=== PATIENT | male | born 1960 | race Caucasian/White ===

== ENCOUNTER 2020-07-29 22:45 | Inpatient (IN) | payer OTHER, SELFPAY ==
[2020-07-29] VITALS (10 sets, daily range): BP systolic 205–252; BP diastolic 115–137; PULSE 78–96; RESP 13–26; TEMP 36.7; O2SAT 94–98
--- NOTE | 2020-07-29 22:45 | RT.EKG_ITS ---
APPROVED REPORT Exam: Resting ECG Patient Location: E HR:88 bpm ECG Measurements Heart Rate 88 AXIS MN 176 P 47 QRSd 112 QRS 23 QT 408 T 28 QTc 493 Conclusion Sinus rhythm...normal P axis, V-rate 60- 99 Probable left atrial enlargement...P >50mS, <-0.10mV V1 Left ventricular hypertrophy...multiple LVH criteria Nonspecific T abnrm, anterolateral leads...T <-0.10mV, I aVL V2-V6 ST elevation, consider anterior injury...ST >0.15mV, V1-V5 Normal [place] ST elevation related to repolarization/LVH not STEMI.
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
[2020-07-29 23:14] LABS: Abs Immature Grans 0.04 10^3/uL (0.0-0.06); Absolute Basophil Count 0.07 10^3/uL (0.0-0.2); Absolute Eosinophil Count 0.29 10^3/uL (0.0-0.7); Absolute Lymphocyte Count 2.83 10^3/uL (1.2-3.4); Absolute Monocyte Count 0.99 10^3/uL (0.1-0.8); Absolute Neutrophil Count 4.54 10^3/uL (1.2-6.7); Basophils % 0.8; Eosinophils % 3.3; HCT 45.3 % (40.0-50.0); HGB 15.3 g/dL (13.5-17.5); Immature Grans % 0.5; Lymphocytes % 32.3; MCH 31.1 pg (27.0-33.0); MCHC 33.8 % (32.0-36.0); MCV 92.1 fL (80-95); MPV 10.1 fL (8.0-11.0); Monocytes % 11.3; Neutrophils % 51.8; Nucleated RBC 0 %; Platelet Count 173 10^3/uL (130-400); RBC 4.92 10^6/uL (4.36-5.78); RDW 12.7 % (11.8-14.1); RDW-SD 42.8 fL; WBC 8.76 10^3/uL (4.4-10.8)
[2020-07-29 23:30] LABS: ALT 24 U/L (16-63); AST 30 U/L (15-37); Albumin 4.4 g/dL (3.4-5.0); Alkaline Phosphatase 74 U/L (46-116); Anion Gap 11.1 mmol/L (3-11); BUN 15 mg/dL (7-18); Bilirubin, Total 0.4 mg/dL (0.2-1.0); CO2 25.9 mmol/L (21.0-32.0); CREATININE 1.27 mg/dL (0.70-1.30); Calcium 9.7 mg/dL (8.5-10.1); Chloride 101 mmol/L (98-107); Estimated GFR 58.45 (mL/min/1.73m2); Glucose 89 mg/dL (74-106); Magnesium 2.2 mg/dL (1.8-2.4); Potassium 3.5 mmol/L (3.5-5.1); Sodium 138 mmol/L (136-145); Total Protein 8.1 g/dL (6.4-8.2)
--- NOTE | 2020-07-29 23:34 | DI.CT_ITS ---
EXAM: CT BRAIN NECK CTA CLINICAL HISTORY: left side weakness since waking up at 7am. TECHNIQUE: Imaging Protocol: Axial CT angiography was performed with multi-slice acquisition and mu lti-planar and/or 3D reconstructions. CONTRAST MATERIAL: Intravenous: Omnipaque 350 Contrast volume:structured data in ml COMPARISON: No exams were available for comparison FINDINGS: CT Head W/O: Ventricles and Extra axial spaces: Normal in size and morphology for the patient's age. Hemorrhage: None. Cerebral parenchyma: 3 small focal hypodensities in the right basal ganglia region consistent with ol d lacunar infarcts. No definite acute infarct is seen. There are basal ganglia calcifications. Midline shift: None. Brainstem/Cerebellum: Normal. Calvarium: Normal. Visualized Paranasal sinuses/Mastoids: Mucosal thickening of the right maxillary sinus. Partial opac ification of right mastoid air cells. Soft Tissues: Unremarkable. CTA Brain W: Internal Carotid Arteries: Petrous: Normal. Cavernous: Normal. Cerebral: Normal. Middle Cerebral Arteries: Right: No aneurysm, occlusion or significant stenosis. Left: No aneurysm, occlusion or significant stenosis. Anterior Cerebral Arteries: Right: No aneurysm, occlusion or significant stenosis. Left: No aneurysm, occlusion or significant stenosis. Posterior cerebral Arteries: Right: No aneurysm, occlusion or significant stenosis. Left: No aneurysm, occlusion or significant stenosis. Vertebral Arteries: Right: No aneurysm, occlusion or significant stenosis. Left: No aneurysm, occlusion or significant stenosis. Basilar Artery: No aneurysm, occlusion or significant stenosis. CTA Neck W: Common Carotid: Right: No aneurysm, occlusion or significant stenosis. Mild calcific plaque at the bulb Left: No aneurysm, occlusion or significant stenosis. Mild calcific plaque at the bulb. External Carotid: Right: No aneurysm, occlusion or significant stenosis. Left: No aneurysm, occlusion or significant stenosis. Internal Carotid: Right: No aneurysm, occlusion or significant stenosis. Left: No aneurysm, occlusion or significant stenosis. Vertebral Artery: Right: No aneurysm, occlusion or significant stenosis. Left: No aneurysm, occlusion or significant stenosis. Lung Apices: Normal. Bones: Normal. Soft Tissues: Smoothly marginated low-density nodules in the but in both lobes of the thyroid. The l argest is at the lower pole of the right lobe which measures 2.2 cm in greatest dimension. IMPRESSION: 1. Normal CTA examination of the [place] of [place]. 2. Small focal low-density lesions in the right basal ganglia, consistent with older subacute lacunar infarcts. 3. Mild calcific plaque at the common carotid bulbs. No significant stenosis. RADIATION DOSE DELIVERED: Total DLP DATA REPOSITORY: All CT scans at this facility are submitted to the National Radiology Data Registry (NRDR) Dose Index Registry (DIR) with the [employer] (ACR). RADIATION OPTIMIZATION: All CT scans at this facility use at least one of these dose optimization te chniques: automated exposure control; mA and/or kV adjustment per patient size (includes targeted exa ms where dose is matched to clinical indication); or iterative reconstruction.
[2020-07-29] MEDS: Normal Saline Flush 10 ML SYR IVP (23:35)
[2020-07-29] MEDS: Omnipaque 350 MG/ML 100 ML BTL IJ (23:36)
[2020-07-29] MEDS: Normal Saline - Diluent 50 ML VIAL IV (23:36)
--- NOTE | 2020-07-29 23:44 | DI.VRAD_ITS ---
PROCEDURE INFORMATION: Exam: CT Angiography Head Without And With Contrast Exam date and time: 07/29/2020 11:00 PM Age: 59 years old Clinical indication: Weakness TECHNIQUE: Imaging protocol: Computed tomographic angiography of the head without and with intravenous contrast. 3D rendering (Not supervised by radiologist): MIP and/or 3D reconstructed images were created by the technologist. Radiation optimization: All CT scans at this facility use at least one of these dose optimization techniques: automated exposure control; mA and/or kV adjustment per patient size (includes targeted exams where dose is matched to clinical indication); or iterative reconstruction. Contrast material: [id number]; Contrast volume: 85 ml; Contrast route: INTRAVENOUS (IV); Other technique: STROKE PROTOCOL was implemented. COMPARISON: No relevant prior studies available. FINDINGS: ANTERIOR CIRCULATION: Right internal carotid artery: Intracranial segment is patent with no significant stenosis or occlusion. No aneurysm. Right middle cerebral artery: No occlusion or significant stenosis. No aneurysm. Right anterior cerebral artery: No occlusion or significant stenosis. No aneurysm. Left internal carotid artery: Intracranial segment is patent with no significant stenosis. No aneurysm. Left middle cerebral artery: No occlusion or significant stenosis. No aneurysm. Left anterior cerebral artery: No occlusion or significant stenosis. No aneurysm. POSTERIOR CIRCULATION: Right vertebral artery: No occlusion or significant stenosis. No aneurysm. Left vertebral artery: No occlusion or significant stenosis. No aneurysm. Basilar artery: No occlusion or significant stenosis. No aneurysm. Right posterior cerebral artery: No occlusion or significant stenosis. No aneurysm. Left posterior cerebral artery: No occlusion or significant stenosis. No aneurysm. HEAD: Brain: Age-indeterminate lacunar infarcts are seen within the right basal ganglia and right thalamus, adjacent to the posterior limb of the right internal capsule. Senescent calcifications are seen within the globus pallidus bilaterally. The brain parenchyma is otherwise normal appearance. No intracranial hemorrhage. No midline shift. No evidence for acute cortical infarct. Cerebral ventricles: Normal. No ventriculomegaly. Bones/joints: Unremarkable. No acute fracture. Paranasal sinuses: Moderate mucosal thickening within the left maxillary sinus. The remaining paranasal sinuses are well aerated. Mastoid air cells: Mild mucosal thickening and fluid within the right mastoid air cells. The left mastoid air cells are well aerated. Soft tissues: Unremarkable. IMPRESSION: 1. No large vessel occlusion. Unremarkable CT head. 2. Age-indeterminate lacunar infarcts within the right basal ganglia and right thalamus adjacent to the posterior limb of the right internal capsule. No evidence for acute cortical infarct. No intracranial hemorrhage. 3. Mild left maxillary sinusitis. Mild fluid within the right mastoid air cells. ASSESSMENT: ASPECTS (She Stroke Program Early CT Score) is 10. PROCEDURE INFORMATION: Exam: CT Angiography Neck Without And With Contrast Exam date and time: 07/29/2020 11:00 PM Age: 59 years old Clinical indication: Weakness TECHNIQUE: Imaging protocol: Computed tomographic angiography of the neck without and with intravenous contrast. 3D rendering (Not supervised by radiologist): MIP and/or 3D reconstructed images were created by the technologist. Radiation optimization: All CT scans at this facility use at least one of these dose optimization techniques: automated exposure control; mA and/or kV adjustment per patient size (includes targeted exams where dose is matched to clinical indication); or iterative reconstruction. Contrast material: [id number]; Contrast volume: 85 ml; Contrast route: INTRAVENOUS (IV); COMPARISON: No relevant prior studies available. FINDINGS: Right common carotid artery: No stenosis. No dissection or occlusion. Right internal carotid artery: Mild atherosclerotic plaque is seen within the right carotid bulb and right internal carotid artery without stenosis. Right external carotid artery: No occlusion or stenosis of the origin. Right vertebral artery: No stenosis. No dissection or occlusion. Left common carotid artery: No stenosis. No dissection or occlusion. Left internal carotid artery: No stenosis of the extracranial segment. No dissection or occlusion. Left external carotid artery: No occlusion or stenosis of the origin. Left vertebral artery: No stenosis. No dissection or occlusion. Thyroid: A 1.9 cm cystic nodule is seen within the left lobe of the thyroid gland. Several smaller, 2-3 mm, cysts are seen within the thyroid gland bilaterally. Bones/joints: No acute fracture. Soft tissues: Normal. No significant soft tissue swelling. Lungs: Mild pulmonary fibrosis within the lung apices. IMPRESSION: 1. No stenosis or occlusion within the extracranial vessels. 2. 1.9 cm cystic nodule within the left lobe of the thyroid gland. This warrants further evaluation with an outpatient, nonemergent thyroid ultrasound. REFERENCES: NASCET CRITERIA. The degree of internal carotid artery stenosis is based on NASCET criteria. Normal is no stenosis. Mild is less than 50% stenosis. Moderate is 50-69% stenosis. Severe is 70% to 99% stenosis. Total occlusion is no detectable patent lumen. Dictated and Authenticated by: Marie Geiger MD. Ordering:BRIEN Bryson MD
[2020-07-29] MEDS: Labetalol 100 MG/20 ML VIAL 10 MG IVP (23:50)
[2020-07-30] VITALS (103 sets, daily range): BP systolic 149–233; BP diastolic 80–162; PULSE 63–97; RESP 10–26; TEMP 36.2–36.8; O2SAT 84–98
[2020-07-30] MEDS: Aspirin 81 MG CHEW 324 MG CH (00:08)
[2020-07-30 00:39] LABS: *AMPHETAMINES SCREEN URINE Negative (Negative); *BARBITURATES SCREEN URINE Negative (Negative); *BENZODIAZEPINES SCREEN URINE Negative (Negative); Cannabinoids THC POSITIVE (Negative); Cocaine Screen,Urine Negative (Negative); METHADONE URINE SCREEN Negative (Negative); OPIATES URINE SCREEN Negative (Negative)
[2020-07-30 01:29] LABS: Tricyclic Antidepressants Negative (Negative)
[2020-07-30 01:33] LABS: Bilirubin Negative (Negative); Blood Trace-intact (Negative); Clarity Clear (Clear); Glucose Negative (Negative); Ketones Negative (Negative); Leukocyte Esterase Negative (Negative); Nitrite Negative (Negative); Specific Gravity 1.015 (1.005-1.025); Urobilinogen 0.2 EU/dL (Up TO 0.2)
[2020-07-30 01:34] LABS: Bacteria Negative HPF (Negative); C & S Indicated? No; Casts Negative LPF (Negative); Crystals Negative HPF (Negative); Epithelial Cells Rare HPF (Negative); Mucus Negative (Negative); RBC 0-2 HPF (0-2); WBC 0-2 HPF (0-5)
[2020-07-30] MEDS: Normal Saline 1,000 ML 75 ML IV (02:00)
[2020-07-30] MEDS: Atorvastatin 40 MG TAB PO ×2 (02:22→19:45)
[2020-07-30 02:32] LABS: Troponin I 0.22 ng/mL (<0.06)
--- NOTE | 2020-07-30 05:30 | RT.EKG_ITS ---
APPROVED REPORT Exam: Resting ECG Patient Location: I HR:72 bpm ECG Measurements Heart Rate 72 AXIS AL 188 P 67 QRSd 102 QRS 45 QT 465 T -9 QTc 510 Conclusion Sinus rhythm...normal P axis, V-rate 60- 99 Probable left atrial enlargement...P >50mS, <-0.10mV V1 LVH with secondary repolarization abnormality...multi-LVH criteria, abnrm ST-T Prolonged QT interval...QTc >500mS
[2020-07-30] MEDS: Heparin 5,000 UNITS/ML VIAL 5000 UNITS SC ×3 (05:44→22:21)
[2020-07-30 06:31] LABS: Abs Immature Grans 0.06 10^3/uL (0.0-0.06); Absolute Basophil Count 0.05 10^3/uL (0.0-0.2); Absolute Eosinophil Count 0.13 10^3/uL (0.0-0.7); Absolute Monocyte Count 0.73 10^3/uL (0.1-0.8); Absolute Neutrophil Count 4.34 10^3/uL (1.2-6.7); Basophils % 0.7; Eosinophils % 1.9; HGB 13.9 g/dL (13.5-17.5); Immature Grans % 0.9; MCH 31.3 pg (27.0-33.0); MCHC 33.9 % (32.0-36.0); MCV 92.3 fL (80-95); MPV 10.2 fL (8.0-11.0); Monocytes % 10.7; Neutrophils % 63.8; Nucleated RBC 0 %; Platelet Count 158 10^3/uL (130-400); RBC 4.44 10^6/uL (4.36-5.78); RDW 12.6 % (11.8-14.1); RDW-SD 43.1 fL; WBC 6.81 10^3/uL (4.4-10.8)
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
[2020-07-30 06:58] LABS: Hemoglobin A1C 5.1 % (<5.7)
[2020-07-30 07:02] LABS: Anion Gap 8.1 mmol/L (3-11); BUN 14 mg/dL (7-18); CO2 24.9 mmol/L (21.0-32.0); CREATININE 1.15 mg/dL (0.70-1.30); Calcium 8.4 mg/dL (8.5-10.1); Calculated LDL 132 mg/dL (<100); Chloride 103 mmol/L (98-107); Cholesterol 194 mg/dL (<200); Glucose 99 mg/dL (74-106); HDL Cholesterol 46 mg/dL (40-60); Magnesium 1.9 mg/dL (1.8-2.4); Potassium 3.4 mmol/L (3.5-5.1); Sodium 136 mmol/L (136-145); Triglyceride 83 mg/dL (<150); Vitamin B12 1239 pg/mL (193-986)
[2020-07-30 07:05] LABS: Troponin I 0.22 ng/mL (<0.06)
[2020-07-30] MEDS: Mylanta Suspension 30 ML CUP PO (07:53)
[2020-07-30] MEDS: Aspirin E.C. 81 MG TABEC PO (07:53)
[2020-07-30] MEDS: Metoprolol 5 MG/5 ML VIAL IVP ×2 (07:54→09:15)
[2020-07-30] MEDS: Potassium Chloride 20 MEQ TABCR 40 MEQ PO (07:54)
[2020-07-30] MEDS: Normal Saline Flush 10 ML SYR IVP ×3 (07:55→23:09)
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
--- NOTE | 2020-07-30 10:33 | PHA.REVIEW ---
Pharmacy Admission Review - Admission Clinical Review (Last Reviewed 07/30/20 @ 07:12 by Sandra Lyn MD) Discharge planning issues (Acute) DVT prophylaxis (Acute) Hypertensive emergency (Acute) CVA (cerebral vascular accident) (Acute) Elevated troponin I level (Acute) No Known Allergies Allergy (Unverified 07/29/20 23:28) Height 5 ft 9 in Weight 77.3 kg ACUTE CVA HYPERTENSIVE EMERGENCY - Comments Comments/Follow Ups: Will need BP meds added to home regimen when appropriate. MD did mention weakness had improved, speech at baseline. Neurology consult, will need Echo, stress test, and MRI - Renal Dosing Renal Dosing: BUN 14 mg/dL (7-18) 07/30/20 06:08 Creatinine 1.15 mg/dL (0.70-1.30) 07/30/20 06:08 Medications needing adjustments: Reviewed (CrCl~70ml/min-meds ok) - Anticoagulation Anticoagulation: Hgb 13.9 g/dL (13.5-17.5) 07/30/20 06:08 Hct 41.0 % (40.0-50.0) 07/30/20 06:08 Plt Count 158 10^3/uL (130-400) 07/30/20 06:08 Creatinine 1.15 mg/dL (0.70-1.30) 07/30/20 06:08 DVT Prohphylaxis: Reviewed Medications: Heparin - Opiate Usage Evaluate Pain Scale/Pains Meds: N/A - Relevant Labs Sodium 136 mmol/L (136-145) 07/30/20 06:08 Potassium 3.4 mmol/L (3.5-5.1) L 07/30/20 06:08 Chloride 103 mmol/L (98-107) 07/30/20 06:08 Magnesium 1.9 mg/dL (1.8-2.4) 07/30/20 06:08 Electrolytes, C-Reactive P, ESR: Reviewed (K+ 40meq po x1,) - DM Control DM Control: Glucose 99 mg/dL (74-106) 07/30/20 06:08 Hemoglobin A1c 5.1 % (<5.7) 07/30/20 06:08 Insulin Dosing: N/A - Heart Failure/NH Heart Failure/NH: Troponin I 0.22 ng/mL (<0.06) H* 09/11/20 06:08 EF%, PRABHAKAR's, B-Blockers, Diuretics: Reviewed (Metoprolol 10mg IVP q6h prn with hold parameters, Troponin levels 0.2,0.22,0.22) - BP Control BP Control: Blood Pressure 197/132 Blood Pressure 210/124 Blood Pressure 200/126 Blood Pressure 201/135 Blood Pressure 203/137 Blood Pressure 215/133 Blood Pressure 215/125 Blood Pressure 209/138 Blood Pressure 215/138 Blood Pressure 178/106 Blood Pressure 201/118 Blood Pressure 214/112 Blood Pressure 195/104 Blood Pressure 197/107 Blood Pressure 197/102 Blood Pressure 201/106 Blood Pressure 233/117 Blood Pressure 196/125 Blood Pressure 184/108 Blood Pressure 220/126 Blood Pressure 220/126 Blood Pressure 205/115 Blood Pressure 212/119 Blood Pressure 243/119 Blood Pressure 252/137 Blood Pressure 250/130 If elevated: Reviewed (Will need to add oral meds to regimen prior to discharge) - Qtc Review If Elevated: Reviewed (QTC 493-no prolonging meds) - IV to PO Switch IV Medications: N/A - Home Meds Home Med List reviewed: Reviewed Relevent Home Meds Not ordered & why?: Xyzal non-formulary, metioned formulary options to MD, Patient doesn't need at this time. Ibuprofen and Calcium also not needed at this time. - Current meds Current Medication Order Review: Reviewed (Added Statin and ASA as new meds, Patient is a smoker and has Nicotine ordered)
--- NOTE | 2020-07-30 11:00 | NUR.NOTE ---
Nursing Note: Addressed continuing concerns over patient continued hypertension to Dr. Collins. He listens to my concerns, and will look into the problem. awaiting new orders.
--- NOTE | 2020-07-30 11:15 | DI.MRI_ITS ---
EXAM: MR BRAIN WO CLINICAL HISTORY: Acute CVA TECHNIQUE: Multiplanar multisequence MRI of the brain was performed. COMPARISON: CT CT BRAIN NECK CTA from 07/29/2020 FINDINGS: The exam is mildly limited by patient motion. Accelerated protocol was performed. There are 2 small areas of old lacunar infarct in the right basal ganglia. Are a few small areas of h igh signal with restricted diffusion in the right basal ganglia consistent with acute lacunar infarct s. An additional tiny focus of restricted diffusion is seen in the posterior left parietal white mat ter. Basal ganglia calcifications are seen. The vascular flow voids appear intact. There is mild unde rlying atrophy. The ventricles are normal in size. There is mucosal thickening of the right maxillary sinus as well as some some fluid in right mastoid air cells. IMPRESSION: Tiny foci of restricted diffusion in the right basal ganglia and left posterior parietal lobes consis tent with acute lacunar infarct. Old right basal ganglia lacunar infarcts are also seen. DATA REPOSITORY:
--- NOTE | 2020-07-30 11:30 | RT.EKG_ITS ---
APPROVED REPORT Exam: Resting ECG Patient Location: I HR:65 bpm ECG Measurements Heart Rate 65 AXIS PA 174 P 59 QRSd 101 QRS 25 QT 495 T -20 QTc 514 Conclusion Sinus rhythm...normal P axis, V-rate 60- 99 Probable left atrial enlargement...P >50mS, <-0.10mV V1 LVH with secondary repolarization abnormality...multi-LVH criteria, abnrm ST-T Prolonged QT interval...QTc >500mS
--- NOTE | 2020-07-30 11:31 | CHAPLAIN ---
Ahmet was in bed when I visited. He seemed hesitant to have a conversation at first, but began responding to questions. He told me he is scheduled for an MRI later today. He has had one before and we talked about what that experience is like for him. Ahmet commented that he is fairly certain his MRI results will be normal. He said he is in touch with family by phone.
--- NOTE | 2020-07-30 11:36 | NUR.NOTE ---
Nursing Note: Patient returns from MRI, c/o of some chest pain. Hr 66 BP 212/123, Advise charge Nurse Brandie. EKG to be ordered
[2020-07-30] MEDS: Pantoprazole 40 MG TABCR PO (11:42)
--- NOTE | 2020-07-30 11:55 | PT.INNT ---
Date of service: 07/30/20 Time of Service: 11:55 PT Notes Visit Reasons: ACUTE CVA, HYPERTENSIVE EMERGENCY Patient was initially at MRI testing then will have ECG done and therefore is not available for PT evaluation. Update from nursing indicates that patient will need to be transferred stat to the ICU for close medical monitoring/urgent intervention. Will plan to evaluate patient as soon as another referral under ICU level of care is received. Thank you for the opportunity to participate in the care of this patient. Jossie Winslow PT, DPT, CLT [facility] [place], [place]
[2020-07-30 12:21] LABS: Troponin I 0.22 ng/mL (<0.06)
[2020-07-30] MEDS: hydrALAZINE 20 MG/ML VIAL 10 MG IVP ×3 (12:32→23:09)
--- NOTE | 2020-07-30 12:35 | NUR.NOTE ---
Nursing Note: [id number] is being transferred to the ICU , report was given to Elaina Rowland RN, all questions were answered
[2020-07-30 14:51] LABS: COVID-19 RT-PCR UVMMC Result Negative (Negative)
[2020-07-30] MEDS: Nicotine 14 MG/24 HR PATCH TD (19:44)
[2020-07-30] MEDS: amLODIPine 5 MG TAB PO (22:21)
[2020-07-31] VITALS (95 sets, daily range): BP systolic 139–202; BP diastolic 86–108; PULSE 69–105; RESP 10–32; TEMP 36.3–36.8; O2SAT 93–100
[2020-07-31] MEDS: Acetaminophen 325 MG TAB 650 MG PO ×2 (03:05→08:34)
[2020-07-31] MEDS: Heparin 5,000 UNITS/ML VIAL 5000 UNITS SC ×3 (05:43→22:34)
[2020-07-31 06:11] LABS: Abs Immature Grans 0.04 10^3/uL (0.0-0.06); Absolute Basophil Count 0.04 10^3/uL (0.0-0.2); Absolute Eosinophil Count 0.07 10^3/uL (0.0-0.7); Absolute Lymphocyte Count 1.34 10^3/uL (1.2-3.4); Absolute Monocyte Count 0.67 10^3/uL (0.1-0.8); Absolute Neutrophil Count 5.47 10^3/uL (1.2-6.7); Basophils % 0.5; Eosinophils % 0.9; HGB 15.4 g/dL (13.5-17.5); Immature Grans % 0.5; Lymphocytes % 17.6; MCH 31.1 pg (27.0-33.0); MCHC 34.2 % (32.0-36.0); MCV 90.9 fL (80-95); MPV 10.1 fL (8.0-11.0); Monocytes % 8.8; Neutrophils % 71.7; Nucleated RBC 0 %; Platelet Count 158 10^3/uL (130-400); RBC 4.95 10^6/uL (4.36-5.78); RDW 13.1 % (11.8-14.1); RDW-SD 43.4 fL; WBC 7.63 10^3/uL (4.4-10.8)
[2020-07-31] MEDS: Pantoprazole 40 MG TABCR PO (08:33)
[2020-07-31] MEDS: Aspirin E.C. 81 MG TABEC PO (08:34)
[2020-07-31] MEDS: Nicotine 14 MG/24 HR PATCH TD (08:35)
[2020-07-31] MEDS: Normal Saline Flush 10 ML SYR IVP ×3 (08:35→22:35)
--- NOTE | 2020-07-31 10:30 | RT.EKG_ITS ---
APPROVED REPORT Exam: Resting ECG Patient Location: I HR:77 bpm ECG Measurements Heart Rate 77 AXIS MA 160 P 71 QRSd 99 QRS 48 QT 439 T -58 QTc 497 Conclusion Sinus rhythm...normal P axis, V-rate 60- 99 Ventricular premature complex...V complex w/ short R-R interval Probable left atrial enlargement...P >50mS, <-0.10mV V1 Probable LVH with secondary repol abnrm...multiple LVH criteria
[2020-07-31 10:32] LABS: Troponin I 0.46 ng/mL (<0.06)
[2020-07-31 11:11] LABS: NT-proBNP 2033 pg/mL (<300)
--- NOTE | 2020-07-31 11:14 | W.PM.PROGNOT ---
Date of Service Date of service: 07/31/20 Time of Service: 11:14 Assessment and Plan Assessment and plan (1) CVA (cerebral vascular accident): Status: Acute Assessment and plan: Unclear as the etiology of his CVA but his symptoms seem to be resolving. Most likely this is small vessel disease with a precipitated because of his CVA due to his hypertensive crisis. Continue gradual blood pressure management. Goal is to reduce his systolic blood pressure by 10% over the next couple days and then work towards normal blood pressures over the next few weeks. We will try not to drop his systolic pressure below 150 during the acute phase of his CVA. He is now 3 days into his onset of his symptoms think we can safely bring down his blood pressure gradually. Qualifiers: CVA mechanism: unspecified Qualified Code(s): I63.9 - Cerebral infarction, unspecified (2) Hypertensive emergency: Status: Acute Assessment and plan: As above. I begin the patient on scheduled doses of metoprolol in addition to the amlodipine that Dr. Collins started him on yesterday. Continue risk factor reduction including treatment of his lipids. Will check a glycohemoglobin A1c to rule out underlying diabetes mellitus. Patient needs to refrain from smoking upon discharge. He needs close outpatient follow-up with a PCP. We will keep him hospitalized while we are adjusting his blood pressure medications and while we complete his stroke work-up including MRI/MRA of the brain along with carotid ultrasound and echocardiogram. (3) Elevated troponin I level: Status: Acute Assessment and plan: I agree with Dr. Collins's assessment that his troponin level is most likely due to hypertensive emergency rather than an acute SC from plaque rupture. In light of his recent CVA and extreme hypertension I would not heparinize him because I think he is at higher risk of having small vessel cerebral bleed. I would continue with statins and aspirin and add low-dose beta-blockers to his regimen. Currently he is asymptomatic of any ischemic pain. I will proceed with an echocardiogram on Sunday morning however his [id number] ultrasound shows well-preserved LV function. This is particularly demonstrated in the parasternal short axis view where he had concentric constriction of his LV at the papillary muscle level. He has significant LVH on his [id number] ultrasound. We will get a better quantification with a formal echocardiogram on Sunday. I will continue to cycle his troponin levels until they decline. (4) Aortic valve regurgitation: Status: Chronic Assessment and plan: As above - repeat echo ordered, but may not be able to be obtained until next week. Qualifiers: Cardiac valve disease etiology: etiology unspecified Qualified Code(s): I35.1 - Nonrheumatic aortic (valve) insufficiency (5) GERD (gastroesophageal reflux disease): Status: Chronic Assessment and plan: Start PPI Qualifiers: Esophagitis presence: without esophagitis Qualified Code(s): K21.9 - Gastro-esophageal reflux disease without esophagitis (6) DVT prophylaxis: Status: Acute Assessment and plan: Started on SC heparin, TEDs, SCDs (7) Discharge planning issues: Status: Acute Assessment and plan: Full code Needs a PCP. Subjective Subjective Interval history since last seen: Patient was admitted 2 days ago with uncontrolled hypertension with evidence of hypertensive emergency with systolic blood pressures in the 240-250 range with diastolic pressures in the 130-140 range and with new onset CVA symptoms include a left facial droop, dysarthric speech, left-sided hemiparesis. His strokelike symptoms have improved. He still has slight left facial droop and some mild weakness in his left hand and arm. Denies any visual symptoms. No headaches. He denies any chest pain or pressure although interestingly he is troponin level which had been leveled off at 0.2 yesterday has risen to 0.46 this morning. Despite this he denies any chest pain or pressure or dyspnea. Repeat EKG this morning demonstrates sinus rhythm with evidence of LVH with strain pattern including ST-T wave abnormalities in the inferolateral leads along with isolated PVC and evidence of left atrial enlargement. Patient's had a history of essential hypertension but has not been to a physician in 5 years. He also has a history of mild to moderate aortic insufficiency which has not been followed up. Since being admitted he has been started on aspirin and statin as blood pressures been managed with amlodipine along with PRN hydralazine. Systolic blood pressures are running in the 160-170 range with diastolic blood pressure readings in the 90s to 100. Given his hypertensive emergency and nonspecific troponin elevations as well as evidence for LVH on his EKG ominous start him on low-dose beta-blockers in addition to his amlodipine. We will continue to cycle his troponin levels until they start to decline. I did a bedside [id number] ultrasound of his heart and he has well-preserved LV function along with LVH. RV function appears to be within normal limits. Although I cannot quantify his aortic insufficiency it appears to be in the mild to moderate range. I think his troponin elevation is secondary to his hypertensive emergency and is due to subendocardial ischemia. He currently is asymptomatic. He will continue to be managed in the intensive care unit until his troponin levels have tapered off and were ensure that his blood pressure remains stable. Physical therapy is working with him this morning so we will see how he fares with ambulation. Formal echocardiogram as well as MRI of the brain and carotid Doppler scan has been ordered and is scheduled for Sunday. Exam Narrative Exam Narrative: Middle-age male who appears to be older than his stated age of 59. He is alert and oriented person place time circumstance. HEENT is remarkable for slight left facial droop. Speech is mildly dysarthric particularly when I have him repeat the phrase no if's, and's, nor but's. Extraocular motions intact. No focal visual field deficits upon confrontation. Normal movement of his tongue and palate. Neck is supple nontender normal carotid pulses no bruits no JVD. Normal range of motion and strength. Lungs are clear to auscultation Heart is regular rate and rhythm with a loud decrescendo murmur over the aortic area but heard along the left parasternal area as well as over the apex. No palpable thrill no heave no gallop. Abdomen soft and nontender no bruits. Extremities without peripheral cyanosis or edema. Neurologic exam: HEENT as described above. Cognition as described above. Manual muscle testing reveals normal range of motion of both upper and lower extremities with normal gross motor strength however fine motor control is slightly diminished in his left hand is particularly noticeable with [id number] pointing. However he seems to have normal hand midwife practitioner strength and normal intrinsic muscular strength in his left hand. There is still some drifting of his left arm. Objective Objective Clinical Data: Abnormal lab results 07/30/20 07/31/20 07/31/20 Range/Units 11:55 10:07 10:17 Troponin I 0.22 H* 0.46 H* (<0.06) ng/mL NT-Pro-B Natriuret Pep 2033 H (<300) pg/mL Vital Signs Temperature 36.4 C L 07/31/20 08:40 Temperature Source Temporal Artery Scan 07/31/20 08:40 Pulse 73 07/31/20 08:29 Pulse Rhythm Regular 07/30/20 13:35 Pulse 87 07/31/20 08:30 Respiratory Rate 19 07/31/20 08:30 Respiratory Effort Non-Labored 07/31/20 08:40 Respiratory Depth Normal 07/31/20 08:40 Respiratory Pattern Normal 07/31/20 08:40 Blood Pressure 172/99 H 07/31/20 08:29 Blood Pressure Mean 117 07/31/20 08:29 Blood Pressure Position Supine 07/31/20 03:11 Pulse Oximetry 100 07/31/20 08:30 Oxygen Delivery Method Room Air 07/31/20 03:11 Oxygen Flow Rate 0 07/31/20 03:11 Pain Level 4 07/31/20 08:40 Comment 07/30/20 09:25 Intake & Output 07/30/20 07/30/20 07/31/20 11:59 23:59 11:59 Intake Total 260 / 260 Output Total 2110 / 3180 1070 / 3180 800 / 800 Balance -2110 / -3180 -1070 / -3180 -540 / -540 Weight 77.3 kg Intake: IV Oral 250 / 250 Output: Urine 2110 / 3180 1070 / 3180 800 / 800 Other: Urine Color Yellow Yellow Yellow Urine Appearance Clear Clear Clear Urine Odor None None Normal Comment voiding in urinal at bedside Voiding Methods Urinal Urinal Urinal Laboratory Results WBC 7.63 10^3/uL (4.4-10.8) 07/31/20 05:46 RBC 4.95 10^6/uL (4.36-5.78) 07/31/20 05:46 Hgb 15.4 g/dL (13.5-17.5) 07/31/20 05:46 Hct 45.0 % (40.0-50.0) 07/31/20 05:46 MCV 90.9 fL (80-95) 07/31/20 05:46 MCH 31.1 pg (27.0-33.0) 07/31/20 05:46 MCHC 34.2 % (32.0-36.0) 07/31/20 05:46 RDW 13.1 % (11.8-14.1) 07/31/20 05:46 Plt Count 158 10^3/uL (130-400) 07/31/20 05:46 MPV 10.1 fL (8.0-11.0) 07/31/20 05:46 Immature Gran % 0.5 07/31/20 05:46 Neutrophils % 71.7 07/31/20 05:46 Lymphocytes % 17.6 07/31/20 05:46 Monocytes % 8.8 07/31/20 05:46 Eosinophils % 0.9 07/31/20 05:46 Basophils % 0.5 07/31/20 05:46 Nucleated RBC % 0 % 07/31/20 05:46 Absolute Neutrophils 5.47 10^3/uL (1.2-6.7) 07/31/20 05:46 Absolute Lymphocytes 1.34 10^3/uL (1.2-3.4) 07/31/20 05:46 Absolute Monocytes 0.67 10^3/uL (0.1-0.8) 07/31/20 05:46 Absolute Eosinophils 0.07 10^3/uL (0.0-0.7) 07/31/20 05:46 Absolute Basophils 0.04 10^3/uL (0.0-0.2) 07/31/20 05:46 Sodium 136 mmol/L (136-145) 07/30/20 06:08 Potassium 3.4 mmol/L (3.5-5.1) L 07/30/20 06:08 Chloride 103 mmol/L (98-107) 07/30/20 06:08 Carbon Dioxide 24.9 mmol/L (21.0-32.0) 07/30/20 06:08 Anion Gap 8.1 mmol/L (3-11) 07/30/20 06:08 BUN 14 mg/dL (7-18) 07/30/20 06:08 Creatinine 1.15 mg/dL (0.70-1.30) 07/30/20 06:08 Estimated GFR/1.73 m2 >= 60.00 (mL/min/1.73m2) 07/30/20 06:08 Glucose 99 mg/dL (74-106) 07/30/20 06:08 Hemoglobin A1c 5.1 % (<5.7) 07/30/20 06:08 Calcium 8.4 mg/dL (8.5-10.1) L 07/30/20 06:08 Magnesium 1.9 mg/dL (1.8-2.4) 07/30/20 06:08 Total Bilirubin 0.4 mg/dL (0.2-1.0) 07/29/20 23:00 AST 30 U/L (15-37) 07/29/20 23:00 ALT 24 U/L (16-63) 07/29/20 23:00 Alkaline Phosphatase 74 U/L (46-116) 07/29/20 23:00 Troponin I 0.46 ng/mL (<0.06) H* 07/31/20 10:07 NT-Pro-B Natriuret Pep 2033 pg/mL (<300) H 07/31/20 10:17 Total Protein 8.1 g/dL (6.4-8.2) 07/29/20 23:00 Albumin 4.4 g/dL (3.4-5.0) 07/29/20 23:00 Triglycerides 83 mg/dL (<150) 07/30/20 06:08 Total Cholesterol 194 mg/dL (<200) 07/30/20 06:08 LDL Cholesterol, Calc 132 mg/dL (<100) H 07/30/20 06:08 HDL Cholesterol 46 mg/dL (40-60) 07/30/20 06:08 Vitamin B12 1239 pg/mL (193-986) H 07/30/20 06:08 Urine Color Yellow (Yellow) 07/30/20 00:12 Urine Clarity Clear (Clear) 07/30/20 00:12 Urine pH 7.0 (5-8) 07/30/20 00:12 Ur Specific [place] 1.015 (1.005-1.025) 07/30/20 00:12 Urine Protein Negative mg/dL (Negative) 07/30/20 00:12 Urine Ketones Negative mg/dL (Negative) 07/30/20 00:12 Urine Blood Trace-intact (Negative) H 07/30/20 00:12 Urine Nitrite Negative (Negative) 07/30/20 00:12 Urine Bilirubin Negative (Negative) 07/30/20 00:12 Urine Urobilinogen 0.2 EU/dL (Up TO 0.2) 07/30/20 00:12 Ur Leukocyte Esterase Negative (Negative) 07/30/20 00:12 Urine RBC 0-2 HPF (0-2) 07/30/20 00:12 Urine WBC 0-2 HPF (0-5) 07/30/20 00:12 Ur Epithelial Cells Rare HPF (Negative) 07/30/20 00:12 Urine Crystals Negative HPF (Negative) 07/30/20 00:12 Urine Bacteria Negative HPF (Negative) 07/30/20 00:12 Urine Casts Negative LPF (Negative) 07/30/20 00:12 Urine Mucus Negative (Negative) 07/30/20 00:12 Ur Culture Indicated? No 07/30/20 00:12 Urine Glucose Negative mg/dL (Negative) 07/30/20 00:12 Urine Opiates Screen Negative (Negative) 07/30/20 00:20 Urine Methadone Screen Negative (Negative) 07/30/20 00:20 Ur Barbiturates Screen Negative (Negative) 07/30/20 00:20 Ur Tricyclics Screen Negative (Negative) 07/30/20 00:20 Ur Amphetamines Screen Negative (Negative) 07/30/20 00:20 U Benzodiazepines Scrn Negative (Negative) 07/30/20 00:20 Urine Cocaine Screen Negative (Negative) 07/30/20 00:20 Ur THC Screen Positive (Negative) A 07/30/20 00:20 COVID-19 PCR Negative (Negative) 07/30/20 00:50 Nasopharyn COVID-19 PCR Not Applicable 07/30/20 00:50 Ref Test Perform Site [facility] lab 07/30/20 00:50
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
[2020-07-31 11:39] LABS: Anion Gap 14.3 mmol/L (3-11); BUN 17 mg/dL (7-18); CO2 19.7 mmol/L (21.0-32.0); Calcium 9.1 mg/dL (8.5-10.1); Chloride 104 mmol/L (98-107); Glucose 99 mg/dL (74-106); Potassium 3.4 mmol/L (3.5-5.1); Sodium 138 mmol/L (136-145)
[2020-07-31] MEDS: Metoprolol 12.5 MG TAB PO (12:27)
--- NOTE | 2020-07-31 14:20 | PDOC.CMPRO ---
Care Management Progress Note S/O: Ahmet was sitting up on the side of his bed when CM met with him. He verbalized understanding of his treatment plan and was agreeable at staying at [facility] through the weekend for additional testing on Sunday. He reported his son, Bossman is quite supportive and may be reaching out to Care Management for updates. He shared no additional concerns at this time. CM continues to follow. A: 59 year old male admitted to [facility] 07/30/20 for Acute CVA, Hypertensive emergency P: Anticipate Ahmet will remain at [facility], awaiting further work-up on Sunday; results to determine discharge plan. Anticipate Ahmet will return home if medically cleared. He will follow up with [facility] for new PCP assignment (prior patient) and his discharge plan of care. CM continues to follow.
[2020-07-31] MEDS: hydrALAZINE 20 MG/ML VIAL 10 MG IVP (16:33)
[2020-07-31] MEDS: Metoprolol 25 MG TAB PO (17:21)
[2020-07-31] MEDS: Atorvastatin 40 MG TAB PO (19:23)
[2020-07-31] MEDS: amLODIPine 5 MG TAB PO (22:34)
[2020-07-31] MEDS: Metoprolol 12.5 MG TAB 25 MG PO (23:58)
[2020-08-01] VITALS (53 sets, daily range): BP systolic 142–187; BP diastolic 83–114; PULSE 58–103; RESP 9–24; TEMP 36.3–36.6; O2SAT 98–100
[2020-08-01] MEDS: Metoprolol 12.5 MG TAB 25 MG PO (06:02)
[2020-08-01] MEDS: Heparin 5,000 UNITS/ML VIAL 5000 UNITS SC ×3 (06:02→23:06)
[2020-08-01 07:35] LABS: Anion Gap 11.8 mmol/L (3-11); BUN 25 mg/dL (7-18); CO2 22.2 mmol/L (21.0-32.0); CREATININE 1.27 mg/dL (0.70-1.30); Calcium 8.9 mg/dL (8.5-10.1); Chloride 105 mmol/L (98-107); Estimated GFR 58.45 (mL/min/1.73m2); Glucose 87 mg/dL (74-106); Potassium 3.3 mmol/L (3.5-5.1); Sodium 139 mmol/L (136-145)
[2020-08-01 07:38] LABS: Troponin I 0.38 ng/mL (<0.06)
[2020-08-01] MEDS: Nicotine 14 MG/24 HR PATCH TD (08:06)
[2020-08-01] MEDS: Aspirin E.C. 81 MG TABEC PO (08:07)
[2020-08-01] MEDS: Pantoprazole 40 MG TABCR PO (08:07)
[2020-08-01] MEDS: Normal Saline Flush 10 ML SYR IVP (08:10)
--- NOTE | 2020-08-01 08:28 | CMPROGNOTE_ITS ---
Care Management Progress Note S/O: Ahmet was sitting up on the side of his bed when CM met with him. He verbalized understanding of his treatment plan and was agreeable at staying at [facility] through the weekend for additional testing on Sunday. He reported his son, Bossman is quite supportive and may be reaching out to Care Management for updates. He shared no additional concerns at this time. CM continues to follow. A: 59 year old male admitted to [facility] 07/30/20 for Acute CVA, Hypertensive emergency P: Anticipate Ahmet will remain at [facility], awaiting further work-up on Sunday; results to determine discharge plan. Anticipate Ahmet will return home if medically cleared. He will follow up with [facility] for new PCP assignment (prior patient) and his discharge plan of care. CM continues to follow.
[2020-08-01] MEDS: Metoprolol 25 MG TAB PO (09:55)
[2020-08-01] MEDS: Potassium Chloride 10 MEQ CAPCR 20 MEQ PO ×2 (09:55→20:35)
--- NOTE | 2020-08-01 11:14 | PGE_ITS ---
Date of Service Date of service: 08/01/20 Time of Service: 11:14 Assessment and Plan Assessment and plan (1) CVA (cerebral vascular accident): Status: Acute Assessment and plan: Unclear as the etiology of his CVA but his symptoms seem to be resolving. Most likely this is small vessel disease with a precipitated because of his CVA due to his hypertensive crisis. Continue gr adual blood pressure management. Goal is to reduce his systolic blood pressure by 10% over the next couple days and then work towards normal blood pressures over the next few weeks. We will try not to drop his systolic pressure below 150 during the acute phase of his CVA. He is now 3 days into his onset of his symptoms think we can safely bring down his blood pressure gradually. Because of the bradycardia I do not feel I can titrate his metoprolol dose any further. I switch this to carvedilol. Continue low-dose amlodipine at night. He has not required any further hydralazine since yesterday. Qualifiers: CVA mechanism: unspecified Qualified Code(s): I63.9 - Cerebral infarction, unspecified (2) Hypertensive emergency: Status: Acute Assessment and plan: As above under assessment and plan for CVA. Continue risk reduction with use of aspirin and statin. Glycohemoglobin A1c was 5.1% effectively ruling out underlying diabetes mellitus. Lipid profile was checked and was found to have a modestly elevated LDL and normal triglyceride level with a low normal HDL. Patient has been started on atorvastatin 40 mg nightly. Metoprolol has been switched to carvedilol. He remains on low-dose amlodipine. Long-term goal is for systolic blood pressures less than 130 and diastolic blood pressure less than 85. For now blood pressures in the 150s over 90s is acceptab le. (3) Elevated troponin I level: Status: Acute Assessment and plan: I agree with Dr. Collins's assessment that his troponin level is most likely due to hypertensive emergency rather than an acute MT from plaque rupture. In light of his recent CVA and extreme hypertension I would not heparinize him because I think he is at higher risk of having small vessel cerebral bleed. I would continue with statins and aspirin and add low- dose beta-blockers to his regimen. Currently he is asymptomatic of any ischemic pain. I will proceed with an echocardiogram on Sunday morning however his [id number] ultrasound shows well-preserved LV function. This is particularly demonstrated in the parasternal short axis view where he had concentric constriction of his LV at the papillary muscle level. He has significant LVH on his [id number]-[id number] ultrasound. We will get a better quantification with a formal echocardiogram on Sunday. Troponins have hit their peak at 0.46 and are now declining. No need to further monitor his troponin levels. We will ask cardiology to evaluate him in the morning give their opinion regarding his troponin leak in light of his hypertensive emergency and CVA. I will also ask them to weigh in on timing of a stress MPI and to continue to follow him as an outpatient regarding his aortic valve regurgitation. (4) Aortic valve regurgitation: Status: Chronic Assessment and plan: Check echocardiogram in the morning and consult with cardiology as above Qualifiers: Cardiac valve disease etiology: etiology unspecified Qualified Code(s): I35.1 - Nonrheumatic aortic (valve) insufficiency (5) GERD (gastroesophageal reflux disease): Status: Chronic Assessment and plan: Start PPI Qualifiers: Esophagitis presence: without esophagitis Qualified Code(s): K21.9 - Gastro-esophageal reflux disease without esophagitis (6) DVT prophylaxis: Status: Acute Assessment and plan: Started on SC heparin, TEDs, SCDs (7) Discharge planning issues: Status: Acute Assessment and plan: Full code Needs a PCP. Subjective Subjective Interval history since last seen: Patient continues to improve daily. He denies any headaches, chest pain, dyspnea. He reports improved strength in his left hand and arm. He denies any residual numbness or tingling in his left hand or arm. No facial tingling. Still has a left facial droop and minimally dysarthric speech. No difficulty swallowing. Patient underwent physical therapy evaluation yesterday. He had good range of motion and strength good balance and good bed mobility transfers. Patient has persistently elevated troponin levels although they are currently declining with this morning's level down to 0.38 from a peak of 0.46. Echocardiogram will be performed in the morning. While it was felt that his initial troponin elevation was secondary to subendocardial ischemia secondary to his hypertensive emergency do have concerns regarding persistently elevated t roponin level. Will check an echocardiogram in the morning both evaluate his aortic valve regurgitation as well as look at overall LV and RV function. Given his recent stroke he is at risk for ischemic heart disease. Patient is currently on aspirin and atorvastatin because of his recent CVA. Were titrating his blood pressure medications. I will switch his Lopressor to carvedilol which will provide improved blood pressure control with both alpha and beta antagonist action. Because of bradycardia will will be limited on further titration of his metoprolol dose. Patient remains on nighttime dose of amlodipine. He has not required any further hydralazine for blood pressure control. Exam Narrative Exam Narrative: Middle-age male who appears to be older than his stated age of 59. He is alert and oriented person place time circumstance. HEENT is remarkable for slight left facial droop. Speech is mildly dysarthric particularly when I have him repeat the phrase no if's, and's, nor but's. Extraocular motions intact. No focal visual field deficits upon confrontation. Normal movement of his tongue and palate. Neck is supple nontender normal carotid pulses no bruits no JVD. Normal range of motion and strength. Lungs are clear to auscultation Heart is regular rate and rhythm with a loud decrescendo murmur over the aortic area but heard along the left parasternal area as well as over the apex. No palpable thrill no heave no gallop. Abdomen soft and nontender no bruits. Extremities without peripheral cyanosis or edema. Neurologic exam: HEENT as described above. Cognition as described above. Manual muscle testing reveals normal range of motion of both upper and lower extremities with normal gross motor strength however fine motor control is slightly diminished in left hand compared to his right hand as evidenced when he performs [id number] testing. However this is improved compared to yesterday. He uses his left index finger and touches his nose and then tries to touch my finger he is slow and deliberate but he seems to be more steady and there is no past-pointing. 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 Objective Objective Clinical Data: Abnormal lab results 07/31/20 07/31/20 08/01/20 Range/Units 10:07 15:30 06:03 Potassium 3.4 L 3.3 L (3.5-5.1) mmol/L Carbon Dioxide 19.7 L (21.0-32.0) mmol/L Anion Gap 14.3 H 11.8 H (3-11) mmol/L BUN 25 H (7-18) mg/dL Troponin I 0.40 H* 0.38 H* (<0.06) ng/mL Vital Signs Temperature 36.3 C L 08/01/20 07:57 Temperature Source Temporal Artery Scan 08/01/20 07:57 Pulse 103 H 08/01/20 04:26 Pulse Rhythm Regular 07/30/20 13:35 Pulse 77 08/01/20 02:15 Respiratory Rate 14 08/01/20 04:26 Respiratory Effort Non-Labored 08/01/20 07:57 Respiratory Depth Normal 08/01/20 07:57 Respiratory Pattern Normal 08/01/20 07:57 Blood Pressure 159/103 H 08/01/20 02:01 Blood Pressure Mean 114 08/01/20 02:01 Blood Pressure Position Supine 07/31/20 03:11 Pulse Oximetry 99 07/31/20 16:22 Oxygen Delivery Method Room Air 08/01/20 04:26 Oxygen Flow Rate 0 08/01/20 04:26 Pain Level 4 08/01/20 07:57 Comment 07/30/20 09:25 Intake & Output 07/31/20 07/31/20 08/01/20 11:59 23:59 11:59 Intake Total 260 / 780 520 / 780 385 / 385 Output Total 800 / 1200 400 / 1200 600 / 600 Balance -540 / -420 120 / -420 -215 / -215 Intake: IV 10 Oral 250 / 750 500 / 750 375 / 375 Output: Urine 800 / 1200 400 / 1200 600 / 600 Other: Urine Color Yellow Yellow Yellow Urine Appearance Clear Clear Clear Urine Odor Normal Normal Comment voiding in urinal at bedside Pt's urine output has been slightly low. Patient states he needs to drink more water. Voiding Methods Urinal Urinal Laboratory Results WBC 7.63 10^3/uL (4.4-10.8) 07/31/20 05:46 RBC 4.95 10^6/uL (4.36-5.78) 07/31/20 05:46 Hgb 15.4 g/dL (13.5-17.5) 07/31/20 05:46 Hct 45.0 % (40.0-50.0) 07/31/20 05:46 MCV 90.9 fL (80-95) 07/31/20 05:46 MCH 31.1 pg (27.0-33.0) 07/31/20 05:46 MCHC 34.2 % (32.0-36.0) 07/31/20 05:46 RDW 13.1 % (11.8-14.1) 07/31/20 05:46 Plt Count 158 10^3/uL (130-400) 07/31/20 05:46 MPV 10.1 fL (8.0-11.0) 07/31/20 05:46 Immature Gran % 0.5 07/31/20 05:46 Neutrophils % 71.7 07/31/20 05:46 Lymphocytes % 17.6 07/31/20 05:46 Monocytes % 8.8 07/31/20 05:46 Eosinophils % 0.9 07/31/20 05:46 Basophils % 0.5 07/31/20 05:46 Nucleated RBC % 0 % 07/31/20 05:46 Absolute Neutrophils 5.47 10^3/uL (1.2-6.7) 07/31/20 05:46 Absolute Lymphocytes 1.34 10^3/uL (1.2-3.4) 07/31/20 05:46 Absolute Monocytes 0.67 10^3/uL (0.1-0.8) 07/31/20 05:46 Absolute Eosinophils 0.07 10^3/uL (0.0-0.7) 07/31/20 05:46 Absolute Basophils 0.04 10^3/uL (0.0-0.2) 07/31/20 05:46 Sodium 139 mmol/L (136-145) 08/01/20 06:03 Potassium 3.3 mmol/L (3.5-5.1) L 08/01/20 06:03 Chloride 105 mmol/L (98-107) 08/01/20 06:03 Carbon Dioxide 22.2 mmol/L (21.0-32.0) 08/01/20 06:03 Anion Gap 11.8 mmol/L (3-11) H 08/01/20 06:03 BUN 25 mg/dL (7-18) H 08/01/20 06:03 Creatinine 1.27 mg/dL (0.70-1.30) 08/01/20 06:03 Estimated GFR/1.73 m2 58.45 (mL/min/1.73m2) 08/01/20 06:03 Glucose 87 mg/dL (74-106) 08/01/20 06:03 Hemoglobin A1c 5.1 % (<5.7) 07/30/20 06:08 Calcium 8.9 mg/dL (8.5-10.1) 08/01/20 06:03 Magnesium 1.9 mg/dL (1.8-2.4) 07/30/20 06:08 Total Bilirubin 0.4 mg/dL (0.2-1.0) 07/29/20 23:00 AST 30 U/L (15-37) 07/29/20 23:00 ALT 24 U/L (16-63) 07/29/20 23:00 Alkaline Phosphatase 74 U/L (46-116) 07/29/20 23:00 Troponin I 0.38 ng/mL (<0.06) H* 08/01/20 06:03 NT-Pro-B Natriuret Pep 2033 pg/mL (<300) H 07/31/20 10:17 Total Protein 8.1 g/dL (6.4-8.2) 07/29/20 23:00 Albumin 4.4 g/dL (3.4-5.0) 07/29/20 23:00 Triglycerides 83 mg/dL (<150) 07/30/20 06:08 Total Cholesterol 194 mg/dL (<200) 07/30/20 06:08 LDL Cholesterol, Calc 132 mg/dL (<100) H 07/30/20 06:08 HDL Cholesterol 46 mg/dL (40-60) 07/30/20 06:08 Vitamin B12 1239 pg/mL (193-986) H 07/30/20 06:08 Urine Color Yellow (Yellow) 07/30/20 00:12 Urine Clarity Clear (Clear) 07/30/20 00:12 Urine pH 7.0 (5-8) 07/30/20 00:12 Ur Specific [place] 1.015 (1.005-1.025) 07/30/20 00:12 Urine Protein Negative mg/dL (Negative) 07/30/20 00:12 Urine Ketones Negative mg/dL (Negative) 07/30/20 00:12 Urine Blood Trace-intact (Negative) H 07/30/20 00:12 Urine Nitrite Negative (Negative) 07/30/20 00:12 Urine Bilirubin Negative (Negative) 07/30/20 00:12 Urine Urobilinogen 0.2 EU/dL (Up TO 0.2) 07/30/20 00:12 Ur Leukocyte Esterase Negative (Negative) 07/30/20 00:12 Urine RBC 0-2 HPF (0-2) 07/30/20 00:12 Urine WBC 0-2 HPF (0-5) 07/30/20 00:12 Ur Epithelial Cells Rare HPF (Negative) 07/30/20 00:12 Urine Crystals Negative HPF (Negative) 07/30/20 00:12 Urine Bacteria Negative HPF (Negative) 07/30/20 00:12 Urine Casts Negative LPF (Negative) 07/30/20 00:12 Urine Mucus Negative (Negative) 07/30/20 00:12 Ur Culture Indicated? No 07/30/20 00:12 Urine Glucose Negative mg/dL (Negative) 07/30/20 00:12 Urine Opiates Screen Negative (Negative) 07/30/20 00:20 Urine Methadone Screen Negative (Negative) 07/30/20 00:20 Ur Barbiturates Screen Negative (Negative) 07/30/20 00:20 Ur Tricyclics Screen Negative (Negative) 07/30/20 00:20 Ur Amphetamines Screen Negative (Negative) 07/30/20 00:20 U Benzodiazepines Scrn Negative (Negative) 07/30/20 00:20 Urine Cocaine Screen Negative (Negative) 07/30/20 00:20 Ur THC Screen Positive (Negative) A 07/30/20 00:20 COVID-19 PCR Negative (Negative) 07/30/20 00:50 Nasopharyn COVID-19 PCR Not Applicable 07/30/20 00:50 Ref Test Perform Site [facility] 07/30/20 00:50
--- NOTE | 2020-08-01 11:28 | PT.INTREAT ---
Date of service: 08/01/20 Time of Service: 10:05 PT Notes Visit Reasons: ACUTE CVA, HYPERTENSIVE EMERGENCY Inpatient Physical Therapy Treatment Note [facility] Date: 08/01/2020 PRECAUTIONS: Fall SUBJECTIVE: Stated his hand coordination still does not feel quit normal. Used example of reaching for an object on his tray and not having good direction. We discussed working on this while sitting in his room. OBJECTIVE: PAIN: No complaints of pain offered. BED MOBILITY/TRANSFERS Sitting up on edge of bed when I arrived to room today. Sit-stand: SBA Stand-sit: SBA GAIT Assistive Device: No assistive device used today Weight bearing: FWB Assist: CGA Distance: 300ft THEREX: Performed LAQs, standing hip flexion, abduction and extension, SSH for 15 reps each, Mini squats x 8 reps, heel raised x 10 reps. All standing exercises required light hand on counter in front of patient to maintain standing balance. Was able to perform static standing with feet together and partial tandem x approximately 10 seconds each without UE assist. SLS did require light UE assist on counter as well. Performed 3 minutes on NuStep at L6 with average of 30 SPM at conclusion of 3 minutes. ASSESSMENT: Tolerated today's session very well without SOB or complaints of pain or discomfort. PLAN: Continue with current POC with focus on balance stability and improved ADL mobility. TREATMENT CODE/TIME: 81484 x 1, 11346 x 1 (30'), 10:00 to 10:30
[2020-08-01] MEDS: Atorvastatin 40 MG TAB PO (20:36)
[2020-08-01] MEDS: Carvedilol 6.25 MG TAB PO (20:36)
[2020-08-01] MEDS: amLODIPine 5 MG TAB PO (20:37)
[2020-08-02] VITALS (16 sets, daily range): BP systolic 145–204; BP diastolic 64–169; PULSE 58–83; RESP 14–19; TEMP 36.3–36.7; O2SAT 97–100
--- NOTE | 2020-08-02 | DI.US_ITS ---
APPROVED REPORT EXAM: Comprehensive 2D, Doppler, and color-flow Echocardiogram Patient Location: In-Patient Room/Bed: [facility] Human Resources Analyst: Tiffany Hutchins RDCS (AE) Indications: CVA Other Information Study Quality: Good Conclusion Left Ventricle : The left ventricle is normal size. The left ventricular systolic function is normal. The left ventricular ejection fraction is within the normal range. Severe concentric left ventricula r hypertrophy. There is normal LV segmental wall motion. The left ventricular diastolic function is n ormal. LVEF is 55-60%. Right Ventricle : The right ventricle is normal size. The right ventricular systolic function is norm al. The RVSP is 26.9mmHg. Atria : The left atrium size is normal. The right atrium size is normal. Aortic Valve : Aortic valve is calcified. Aortic valve leaflets are sclerotic with decreased opening. Aortic valve is probably trileaflet. Mild to moderate aortic regurgitation. Moderate to severe aorti c stenosis. Peak aortic valve gradient is 55.5mmHg. Highest mean aortic valve gradient is 33.3mmHg. C alculated RAMON by the continuity equation is 1.10cm2. Mitral Valve : Moderate mitral annular calcification. Trace to mild mitral regurgitation. No evidence of mitral valve stenosis. Great Vessels : The aortic root is normal in size. The ascending aorta is moderately dilated (4cm). A ortic arch is normal in caliber. IVC is normal in size and collapses >50% with inspiration. Echocardiogram from 09/03/2013: The patient's aortic stenosis has worsened from mild-moderate to now moderate-severe Wall motion Left Ventricle The left ventricle is normal size. The left ventricular systolic function is normal. The left ventric ular ejection fraction is within the normal range. Severe concentric left ventricular hypertrophy. Th ere is normal LV segmental wall motion. The left ventricular diastolic function is normal. There is n o ventricular septal defect visualized. LVEF is 55-60%. Right Ventricle The right ventricle is normal size. The right ventricular systolic function is normal. The RVSP is 26 .9mmHg. Right ventricle is hypertrophied. Atria The left atrium size is normal. The right atrium size is normal. The interatrial septum is intact wit h no evidence for an atrial septal defect. Aortic Valve Aortic valve is calcified. Aortic valve leaflets are sclerotic with decreased opening. Aortic valve i s probably trileaflet. Moderate to severe aortic stenosis. Peak aortic valve gradient is 55.5mmHg. [facility] mean aortic valve gradient is 33.3mmHg. Calculated RAMON by the continuity equation is 1.10cm2. M ild to moderate aortic regurgitation. Mitral Valve Moderate mitral annular calcification. No evidence of mitral valve stenosis. Trace to mild mitral reg urgitation. Tricuspid Valve The tricuspid valve is normal in structure. There is no tricuspid valve stenosis. Trace tricuspid reg urgitation. Pulmonic Valve The pulmonary valve is normal in structure. There is no pulmonic valvular stenosis. Trace pulmonic re gurgitation. Great Vessels The aortic root is normal in size. The ascending aorta is moderately dilated (4cm). Aortic arch is no rmal in caliber. IVC is normal in size and collapses >50% with inspiration. Pericardium There is no pericardial effusion. 2D Dimensions IVSD d PLAX 1.70 cm M: 0.6-1.2 LV Vol A2C d MOD 114.8 mL LVPW d PLAX 1.71 cm M: 0.6 - 1.2 LV Vol A4C d MOD 121.0 mL LVID d PLAX 5.17 cm M: 4.2 - 5.8 LA vol/ BSA A2C s A-L 29.6 mL/m2 LVDs 3.65 cm M: 2.5 - 4.0 LA vol/ BSA A4C s A-L 23.2 mL/m2 Ao Root d 3.00 cm M: 3.1 - 3.7 LA Vol/ BSA Biplane s A-L 27.1 mL/m2 RA Area A4C 10.81 cm2 LA Area A4C s MOD 15.82 cm2 RA Vol/ BSA A4C s A-L 15.0 mL/m2 LA Area A2C s MOD 17.28 cm2 Ao Asc Diam d 4.01 cm M: 2.6 - 3.4 LV EF A4C MOD 58.1 % LV EF Teichholz 54.6 % LV EF A2C MOD 55.0 % LVEF (Torrez's) 57.59 % M: 52 - 72 LV EF Biplane MOD 57.6 % LV Volume 92.08 mL M: 62 - 150 SV 69.84 mL LV Volume Index 47.95 mL/m2 M: 34 - 74 SV Index 36.23 mL/m2 LV Vol Biplane MOD 121.3 mL FS 28.50 % M-Mode TAPSE 2.34 cm (M/F) >1.7 LV Diastology MV E' medial 0.057 (>0.07 m/s) E/A Ratio 1.3 LV E/e MED 12.30 (<14) MV E Vmax 0.71 (0.4-1.3 m/s) MV E' lateral 0.056 (>0.1 m/s) MV A Vmax 0.55 (0.4-1.3 m/s) LV E/e LAT 12.60 (<14) MV E/A Ratio 1.18 MV E/E' medial 12.34 MV E/E' lateral 12.61 Aortic Valve LVOT Area 3.39 cm2 AoV Area Vmax 1.10 cm2 LVOT Vmax 1.20 m/s AoV Area/ BSA (Vmax) 0.57 cm2/m2 LVOT Mean Jose. 0.85 m/s RAMON Mean Jose. 1.05 cm2 LVOT Peak Grad 5.8 mmHg RAMON Mean Jose. Index 0.55 cm2/m2 LVOT Mean Grad 3.3 mmHg AR DT 2622 msec LVOT VTI 0.251 m AR PHT 760 msec LVOT Diam s 2.05 cm AoV Vmax 3.72 m/s Velocity Ratio 0.32 AoV Mean Jose. 2.75 m/s AoV Peak Grad 55.5 mmHg LVOT SV 85.06 mL AoV Mean Grad 33.3 mmHg AoV VTI 0.741 m AoV Area VTI 1.15 cm2 AoV Area/ BSA (VTI) 0.60 cm/m2 Mitral Valve MV DT 263 (160-240 msec) MV PHT 76 msec MV Area PHT 2.88 cm2 Pulmonary Valve PV Vmax 0.83 (0.5-1.5 m/s) RVOT Peak Gr. 1.10 mmHg PV Peak Grad 2.7 mmHg RVOT Mean Gr. 0.45 mmHg PV Mean Grad 1.5 mmHg RVOT VTI 0.096 m PV VTI 0.161 m RVOT Vmax 0.53 m/s Tricuspid Valve TR Peak Grad 23.9 mmHg TR Vmax 2.44 m/s RA Pressure 3.00 mmHg RVSP (TR) 26.9 mmHg
[2020-08-02] MEDS: Heparin 5,000 UNITS/ML VIAL 5000 UNITS SC ×2 (05:44→14:22)
[2020-08-02 07:42] LABS: Anion Gap 10.9 mmol/L (3-11); BUN 25 mg/dL (7-18); CO2 22.1 mmol/L (21.0-32.0); CREATININE 1.22 mg/dL (0.70-1.30); Calcium 8.6 mg/dL (8.5-10.1); Chloride 105 mmol/L (98-107); Glucose 83 mg/dL (74-106); Potassium 3.5 mmol/L (3.5-5.1); Sodium 138 mmol/L (136-145)
--- NOTE | 2020-08-02 08:57 | PT.INTREAT ---
Date of service: 08/02/20 Time of Service: 08:57 PT Notes Visit Reasons: ACUTE CVA, HYPERTENSIVE EMERGENCY Inpatient Physical Therapy Treatment Note [facility] Date: 08/02/2020 PRECAUTIONS: Fall. Standard. Activity as tolerated. SUBJECTIVE: Reports that everything has been going well for him mobility-[place]. Feels that he is ready to go home and is agreeable to continuing outpatient PT services for balance progression. OBJECTIVE: No lines seen. PAIN: No complaints received from patient. BED MOBILITY/TRANSFERS Rolling independent Supine to sit independent Sit to supine independent Sit to stand independent Stand to sit independent Bed to chair independent Chair to bed independent GAIT Assistive Device: No assistive device used today Weight bearing: FWB Assist: Standby assist Distance: 350 feet Deviation: No path deviation. Increased step height/length. STAIRS: Tolerated up-and-down six 4 inch steps and five 6 inch steps while holding onto one rail with a step over step gait pattern requiring standby assist. THERA ACT: Activity to increase balance awareness utilizing sidestepping x10 to the right tendon x10 to the left for 3 sets as well as sit to stand activities x 12 were completed by patient today without undue difficulty. SPECIAL TESTS: 30second chair rise ? 12 times 4 stage balance test. Tolerated positions 1 (feet together), 2(semi-tandem), and 3 (full tandem) for 10 seconds with 1-2 trials given. Also completed position for (1 legged stance) for 10 seconds but required contact-guard assist. ASSESSMENT: Ahmet demonstrates significant functional mobility improvements with achievement of independence for all bed mobility and transfer task performance and increased ambulation distance covered to 350 feet without undue difficulty. PLAN: Continue with current POC with focus on balance stability and improved ADL mobility. TREATMENT CODE/TIME: 95783 x 32 minutes beginning at 8:57 AM.
[2020-08-02] MEDS: Potassium Chloride 10 MEQ CAPCR 20 MEQ PO (09:05)
[2020-08-02] MEDS: Aspirin E.C. 81 MG TABEC PO (09:06)
[2020-08-02] MEDS: Carvedilol 6.25 MG TAB PO ×2 (09:06→10:33)
[2020-08-02] MEDS: Pantoprazole 40 MG TABCR PO (09:07)
--- NOTE | 2020-08-02 09:25 | PGE_ITS ---
Date of Service Date of service: 08/02/20 Time of Service: 09:25 Assessment and Plan Assessment and plan (1) CVA (cerebral vascular accident): Status: Acute Assessment and plan: Right basal ganglier and left posterior parietal CVAs per MRI. Will check echocardiogram results. Continue with aspirin and blood pressure management and atorvastatin. Will arrange outpatient 30-day event recorder however he has had no atrial dysrhythmias since admission. Qualifiers: CVA mechanism: unspecified Qualified Code(s): I63.9 - Cerebral infarction, unspecified (2) Hypertensive emergency: Status: Acute Assessment and plan: Continued improvement in his blood pressure. We will adjust his carvedilol dose and continue with amlodipine. (3) Elevated troponin I level: Status: Acute Assessment and plan[facility] look for any r egional wall motion abnormalities. Arrange outpatient stress MPI however I feel his acute troponin elevation was secondary to his hypertensive emergency. Her exertional chest pain with physical activity including ambulation out of the ICU over to the medical/surgical floor. (4) Aortic valve regurgitation: Status: Chronic Assessment and plan: Check echocardiogram in the morning and consult with cardiology as above Qualifiers: Cardiac valve disease etiology: etiology unspecified Qualified Code(s): I35.1 - Nonrheumatic aortic (valve) insufficiency (5) GERD (gastroesophageal reflux disease): Status: Chronic Assessment and plan: Start PPI Qualifiers: Esophagitis presence: without esophagitis Qualified Code(s): K21.9 - Gastro-esophageal reflux disease without esophagitis (6) DVT prophylaxis: Status: Acute Assessment and plan: Started on SC heparin, TEDs, SCDs (7) Discharge planning issues: Status: Acute Assessment and plan: Full code Needs a PCP. Subjective Subjective Patient reports: no new complaints Interval history since last seen: Patient is doing well. He ambulated for physical therapy with just standby assistance no loss of balance. He denies any new neurologic symptoms. In fact he denies any facial numbness or tingling and no tingling or numbness in his arm. He has had good range of motion strength in all 4 extremities. Blood pressure continues to improve gradually. I think there are some room for adjustment in his antihypertensives. I am awaiting the results of his echocardiogram but otherwise we will plan on discharging him later today. I think he should have a follow-up outpatient stress MPI as his CVA is an increased risk factor for ischemic heart disease. He has had no symptoms of chest pain or dyspnea with activity and therefore I think the stress MPI can be followed up as an outpatient. Exam Narrative Exam Narrative: Middle-age male who appears to be older than his stated age of 59. He is alert and oriented person place time circumstance. HEENT is remarkable for slight left facial droop. Speech is clear. Extraocular motions intact. No focal visual field deficits upon confrontation. Normal movement of his tongue and palate. Neck is supple nontender normal carotid pulses no bruits no JVD. Normal range of motion and strength. Lungs are clear to auscultation Heart is regular rate and rhythm with a loud decrescendo murmur over the aortic area but heard along the left parasternal area as well as over the apex. No palpable thrill no heave no gallop. Abdomen soft and nontender no bruits. Extremities without peripheral cyanosis or edema. Neurologic exam: HEENT as described above. Cognition as described above. Manual muscle testing reveals normal range of motion of both upper and lower extremities with normal gross motor strength. Even fine motor control has improved when I had him do [id number] testing. He is less hesitant with his left hand and there is no past-pointing and he has excellent control. Objective Last Vital Signs Temp 36.7 C 08/02/20 03:50 Pulse 63 08/02/20 09:01 Resp 15 08/02/20 06:20 BP 168/97 H 08/02/20 09:01 Pulse Ox 100 08/02/20 09:01 Laboratory Results - last 24 hr 08/02/20 06:30 Sodium 138 Potassium 3.5 Chloride 105 Carbon Dioxide 22.1 Anion Gap 10.9 BUN 25 H Creatinine 1.22 Estimated GFR/1.73 m2 >= 60.00 Glucose 83 Calcium 8.6
--- NOTE | 2020-08-02 11:28 | W.NUTRFU ---
Date of service: 08/02/20 Time of Service: 11:29 Nutritional Follow up NOTE: 59 year old male admitted with CVA, hypertensive episode. BMI wnl for age. STATION DETECTIVE consult pending. Following Heart Healthy Diet with adequate intake (>75%). Nursing reports no concerns with swallowing in regular texture. Not at risk for nutritional decline at this time. Will continue to follow and monitor. Time Spent in Nutritional Counseling and Treatment: 0 time
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
[2020-08-02] MEDS: Carvedilol 6.25 MG TAB 12.5 MG PO (16:31)
[2020-08-02] MEDS: amLODIPine 5 MG TAB PO ×2 (16:31→18:24)
--- NOTE | 2020-08-02 16:41 | CMDISCH_ITS ---
- If Service Date Differs Date of service: 08/02/20 Time of Service: 16:41 LACE Index Scoring Tool - Questions: Length of Stay (in days): 4 - 6 Acuity (Admit via E.D.?): Yes Comorbidities: Cerebrovascular Disease E.D. Visits: 1 - Answers: Total Score: 9 Risk of Readmission: Low Risk Care Management Discharge Reason for Hospitalization: Acute CVA, hypertensive emergency Discharge Plan: Ahmet will return home with no additional services at this time. He will be driven home via private vehicle by family. He will follow up with out patient PT and his discharge plan of care. ANNE reconnected him to [facility], and he has an appointment scheduled with Gabby Connell on Sunday08/06/20. ANNE provided a [facility] application for Ahmet and his son, Bossman to fill out together. Ahmet is happy to be going home. Patient/Family Education Needs: Review discharge instructions regarding activity levels and medications, discussion of self care needs including ask me three.
== END 2020-08-02 18:35 | disposition home health service (06) | DRG 65 ==
LOC: ER 07-30 01:06 → MS 07-30 01:19 → ICU 07-30 11:51
PROVIDERS: Family Medicine; Internal Medicine; Admitting Provider Internal Medicine; Emergency Provider Emergency Medicine; Visit Provider Internal Medicine
DX: I63.9 Cerebral infarction, unspecified (principal); I16.1 Hypertensive emergency; G81.94 Hemiplegia, unspecified affecting left nondominant side; I35.0 Nonrheumatic aortic (valve) stenosis; R74.9 Abnormal serum enzyme level, unspecified; K21.9 Gastro-esophageal reflux disease without esophagitis; F17.210 Nicotine dependence, cigarettes, uncomplicated; Z87.11 Personal history of peptic ulcer disease; R29.704 NIHSS score 4; R29.810 Facial weakness; R47.1 Dysarthria and anarthria; R05 Cough; R00.1 Bradycardia, unspecified
CPT/HCPCS: 36415; 70496; 70498; 80048; 80053; 80061; 80307; 93005; 93306; 96374; 97110; 97161; 97530; 99223; 99233; 99239; 99291; U0003; 70551; 81003; 81015; 82607; 83036; 83735; 83880; 84484; 85025; 93010; J0360; J1644; J3490

== ENCOUNTER 2020-08-03 10:03 | Inpatient (IN) | payer OTHER, SELFPAY ==
[2020-08-03] VITALS (76 sets, daily range): BP systolic 114–197; BP diastolic 58–132; PULSE 60–80; RESP 12–24; TEMP 36.3–37.1; O2SAT 94–100
--- NOTE | 2020-08-03 10:06 | RT.EKG_ITS ---
APPROVED REPORT Exam: Resting ECG Patient Location: E HR:61 bpm ECG Measurements Heart Rate 61 AXIS TN 172 P 62 QRSd 100 QRS 16 QT 451 T 180 QTc 455 Conclusion Sinus rhythm. LVH with secondary repolarization abnormality...multi-LVH criteria, abnrm ST-T
--- NOTE | 2020-08-03 10:15 | DI.CT_ITS ---
EXAM: CT HEAD WO CLINICAL HISTORY: hypertensive, recent CVA, L arm throbbing TECHNIQUE: COMPARISON: CT CT BRAIN NECK CTA from 07/29/2020 FINDINGS: CT examination was performed without contrast administration. Current examination is compared prior study of July 29 and MRI of July. There is an area of decreased attenuation of the basal ganglia on the right consistent with old and/or subacute infarctions. No evidence of acute hemorrha ge. No change in appearance comparison with prior study. No new areas of decreased attenuation iden tified the cerebral parenchyma. Ventricular system is normal appearance. The orbital and temporal b one structures appear intact. IMPRESSION: Stable basal ganglia lacunar infarcts, old and/or subacute. No evidence of acute hemorrhage. RADIATION DOSE DELIVERED: 778.31mGy.cm Total DLP
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
[2020-08-03] MEDS: Normal Saline 1,000 ML 150 ML IV ×2 (10:26→14:51)
[2020-08-03] MEDS: hydrALAZINE 20 MG/ML VIAL 5 MG IVP (10:35)
[2020-08-03 10:36] LABS: Abs Immature Grans 0.02 10^3/uL (0.0-0.06); Absolute Basophil Count 0.07 10^3/uL (0.0-0.2); Absolute Eosinophil Count 0.19 10^3/uL (0.0-0.7); Absolute Lymphocyte Count 1.86 10^3/uL (1.2-3.4); Absolute Monocyte Count 0.72 10^3/uL (0.1-0.8); Absolute Neutrophil Count 4.73 10^3/uL (1.2-6.7); Basophils % 0.9; Eosinophils % 2.5; HCT 44.3 % (40.0-50.0); HGB 15.2 g/dL (13.5-17.5); Immature Grans % 0.3; Lymphocytes % 24.5; MCH 31.5 pg (27.0-33.0); MCHC 34.3 % (32.0-36.0); MCV 91.7 fL (80-95); MPV 10.2 fL (8.0-11.0); Monocytes % 9.5; Neutrophils % 62.3; Nucleated RBC 0 %; Platelet Count 187 10^3/uL (130-400); RBC 4.83 10^6/uL (4.36-5.78); RDW 12.6 % (11.8-14.1); RDW-SD 42.7 fL; WBC 7.59 10^3/uL (4.4-10.8)
[2020-08-03 10:48] LABS: ALT 48 U/L (16-63); AST 61 U/L (15-37); Albumin 3.9 g/dL (3.4-5.0); Alkaline Phosphatase 67 U/L (46-116); Anion Gap 8.5 mmol/L (3-11); BUN 24 mg/dL (7-18); Bilirubin, Total 0.7 mg/dL (0.2-1.0); CO2 24.5 mmol/L (21.0-32.0); CREATININE 1.48 mg/dL (0.70-1.30); Chloride 101 mmol/L (98-107); Estimated GFR 48.99 (mL/min/1.73m2); Glucose 101 mg/dL (74-106); Potassium 4.1 mmol/L (3.5-5.1); Sodium 134 mmol/L (136-145); Total Protein 7.6 g/dL (6.4-8.2)
[2020-08-03 10:49] LABS: Troponin I 0.22 ng/mL (<0.06)
[2020-08-03] MEDS: niCARdipine 25 MG in Normal Saline 240 ML 50 MG IV (12:11)
[2020-08-03 14:07] LABS: Troponin I 0.19 ng/mL (<0.06)
[2020-08-03] MEDS: Enoxaparin 40 MG/0.4 ML SYR SC (14:51)
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
[2020-08-03] MEDS: Carvedilol 12.5 MG TAB PO (19:56)
[2020-08-03 23:02] LABS: COVID-19 RT-PCR UVMMC Result Negative (Negative)
[2020-08-04] VITALS (17 sets, daily range): BP systolic 111–178; BP diastolic 70–119; PULSE 56–77; RESP 13–19; TEMP 36.3–36.7; O2SAT 96–97
[2020-08-04 07:46] LABS: Anion Gap 9.3 mmol/L (3-11); BUN 19 mg/dL (7-18); CO2 21.7 mmol/L (21.0-32.0); CREATININE 1.27 mg/dL (0.70-1.30); Calcium 8.3 mg/dL (8.5-10.1); Chloride 105 mmol/L (98-107); Estimated GFR 58.45 (mL/min/1.73m2); Glucose 80 mg/dL (74-106); Potassium 3.7 mmol/L (3.5-5.1); Sodium 136 mmol/L (136-145)
[2020-08-04 07:51] LABS: Troponin I 0.18 ng/mL (<0.06)
[2020-08-04] MEDS: Normal Saline Flush 10 ML SYR IVP (08:41)
[2020-08-04] MEDS: Carvedilol 12.5 MG TAB PO (08:41)
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
--- NOTE | 2020-08-04 12:49 | W.PM.PROGNOT ---
Date of Service Date of service: 08/04/20 Time of Service: 12:49 Assessment and Plan Assessment and plan (1) Syncope: Status: Chronic Assessment and plan: Unclear etiology for his syncope. However the patient show me his blood pressure readings from his phone. He states his systolic blood pressure dropped as low as 84/40. Is unclear whether this is a vasovagal episode but it probably was not related to his blood pressure medications. Nevertheless I am going to discontinue the amlodipine because of the potential for vasodilators causing a significant flow gradient across the stenotic aortic valve. I will continue his carvedilol at 12.5 mg twice daily and he can have further adjustment in his blood pressure medications as an outpatient with possible addition of an PRABHAKAR inhibitor. Qualifiers: Syncope type: unspecified Qualified Code(s): R55 - Syncope and collapse (2) Aortic stenosis: Status: Chronic Assessment and plan: Careful blood pressure titration as noted above with cardiology follow-up. Qualifiers: Cardiac valve disease etiology: etiology unspecified Qualified Code(s): I35.0 - Nonrheumatic aortic (valve) stenosis (3) Aortic valve regurgitation: Status: Chronic Assessment and plan: As above Qualifiers: Cardiac valve disease etiology: etiology unspecified Qualified Code(s): I35.1 - Nonrheumatic aortic (valve) insufficiency (4) HTN (hypertension): Status: Chronic Assessment and plan: As above Qualifiers: Hypertension type: essential hypertension Qualified Code(s): I10 - Essential (primary) hypertension (5) Hypertensive emergency: Status: Resolved Assessment and plan: We will check for causes for secondary hypertension including checking his plasma renin activity level and aldosterone level as well as checking VMA and metanephrines. These of all been ordered and are pending at this time can be followed up as an outpatient. (6) Elevated troponin I level: Status: Resolved Assessment and plan: Troponins continue to trend downward and were felt to be secondary to his hypertensive crisis from his last admission. Patient still needs an outpatient stress MPI study with Lexiscan Subjective Subjective Interval history since last seen: Patient is doing markedly better today. Blood pressures are little on the high side but has had no dizziness no lightheadedness and no recurrent syncope. He denies any chest pain or pressure. No left-sided arm weakness. Dr. Omega Motta, market development analyst, saw the patient yesterday. He feels that we need to avoid dehydration he agreed with gentle fluid IV hydration overnight. He feels that the syncopal spell was not related to the patient's morning carvedilol because he feels that the patient would not have recovered such a high blood pressure so quickly A. fib and medication related. Feels the patient may have had a vasovagal episode. He feels that the patient's aortic stenosis while severe is not severe enough to cause a syncopal spell. Patient would like to return home. Berna, his primary nurse in ICU has ambulated him this morning and the patient had no dizziness or lightheadedness and no significant rise or drop in his blood pressure heart rate. At this time I am going to discharge him home on his continued dose of carvedilol 12.5 mg twice a day but discontinued his amlodipine. He should remain on atorvastatin as well as aspirin. He should keep his follow-up with Dr. Omega Motta in early August. Patient should have an outpatient stress MPI which is already been ordered. He would probably need further gradual adjustment in his blood pressure medications and Dr. Motta suggested addition of an PRABHAKAR inhibitor. I will leave this up to his market development analyst to adjust his medicines as an outpatient. Exam Narrative Exam Narrative: Middle-age male looks older than his stated age of 59. He is alert and oriented person place time circumstance. HEENT is remarkable for a chronic left facial droop. Full extraocular motions intact pupils are equally round reactive to light and accommodation visual pichardo were grossly intact to confrontation. Lungs are clear to auscultation. Heart is regular rate and rhythm with a loud decrescendo murmur over the aortic outflow tract and along the left parasternal area. No thrill or heave or gallop. Extremities without peripheral cyanosis or edema. Normal range of motion and strength in both upper and lower extremities normal hand hogshead cooper strength. Normal sensation to light touch. Other than slight left facial droop at the corner of his mouth the rest of his facial mimetic muscle movement is normal. Full extraocular motions intact. Visual pichardo are intact grossly by confrontation. Objective Last Vital Signs Temp 36.3 C L 08/04/20 08:45 Pulse 61 08/04/20 11:04 Resp 14 08/04/20 11:04 BP 161/104 H 08/04/20 11:04 Pulse Ox 96 08/04/20 03:33 Laboratory Results - last 24 hr 08/03/20 08/03/20 08/04/20 12:06 13:30 06:25 Sodium 136 Potassium 3.7 Chloride 105 Carbon Dioxide 21.7 Anion Gap 9.3 BUN 19 H Creatinine 1.27 Estimated GFR/1.73 m2 58.45 Glucose 80 Calcium 8.3 L Troponin I 0.19 H* 0.18 H* COVID-19 PCR Negative Nasopharyn COVID-19 PCR Not Applicable Ref Test Perform Site [facility] lab
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
--- NOTE | 2020-08-04 14:54 | PDOC.CMDIS ---
- If Service Date Differs Date of service: 08/04/20 Time of Service: 14:54 LACE Index Scoring Tool - Questions: Length of Stay (in days): 2 Acuity (Admit via E.D.?): Yes Comorbidities: Cerebrovascular Disease E.D. Visits: 2 - Answers: Total Score: 8 Risk of Readmission: Low Risk Care Management Discharge Reason for Hospitalization: Hypertensive Emergency Discharge Plan: Ahmet will return home with no additional services at this time. He will follow up with his PCP and discharge plan of care. His son, Bossman will drive him home via private vehicle. He is happy to be going home. Patient/Family Education Needs: Review discharge instructions regarding activity levels and medications, discussion of self care needs including ask me three.
[2020-08-08 12:06] LABS: Renin Activity, Plasma 2.2 ng/mL/h
--- NOTE | 2020-09-09 08:32 | W.CARDEVENT ---
Date of service: 09/09/20 Time of Service: 08:33 Cardiac Event Recorder Referring Provider:: Becki Indications:: CVA Cardiac Event Note: This is a 30-day event recorder ordered for indication of CVA. ?The patient was in normal sinus rhythm for the majority of the recording with an average heart rate of 61 bpm. ?There were no automatically detected events. There were 6 patient triggered events associated with sinus rhythm. ?There were no episodes of atrial fibrillation, no pauses greater than 3 seconds, no evidence of high degree heart block nor any episodes of ventricular tachycardia.
== END 2020-08-04 14:00 | disposition home or self-care (01) | DRG 312 ==
LOC: ER 12:12 → ICU 12:35
PROVIDERS: Admitting Provider Internal Medicine; Emergency Provider Emergency Medicine; Visit Provider Internal Medicine
DX: R55 Syncope and collapse (principal); I35.2 Nonrheumatic aortic (valve) stenosis with insufficiency; I10 Essential (primary) hypertension; K21.9 Gastro-esophageal reflux disease without esophagitis; Z86.73 Personal history of transient ischemic attack (TIA), and cerebral infarction without residual deficits; R05 Cough; F17.210 Nicotine dependence, cigarettes, uncomplicated
CPT/HCPCS: 36415; 36416; 80048; 80053; 82533; 82962; 93005; 93270; 96361; 96374; 96375; 99220; 99232; 99238; 99254; 99285; J1650; U0003; 70450; 82088; 83835; 84244; 84484; 84585; 85025; 93010; 99223; J0360; J3490

== ENCOUNTER → 2020-08-20 11:09 | Outpatient (BNVA) | payer OTHER, SELFPAY | PROVIDERS: PCP Nurse Practitioner; Visit Provider Internal Medicine Cardiovascular Disease | DX: I35.0 Nonrheumatic aortic (valve) stenosis (principal); I21.4 Non-ST elevation (NSTEMI) myocardial infarction; I10 Essential (primary) hypertension | CPT/HCPCS: 99204; 99215 ==

== ENCOUNTER 2020-08-31 01:24 | Outpatient (CLI) | payer OTHER, SELFPAY ==
[2020-08-31 14:00] LABS: Anion Gap 9.5 mmol/L (3-11); BUN 10 mg/dL (7-18); CO2 26.5 mmol/L (21.0-32.0); CREATININE 1.23 mg/dL (0.70-1.30); Calcium 9.1 mg/dL (8.5-10.1); Chloride 102 mmol/L (98-107); Glucose 80 mg/dL (74-106); Potassium 4.8 mmol/L (3.5-5.1); Sodium 138 mmol/L (136-145)
== END 2020-08-31 01:44 ==
PROVIDERS: PCP Nurse Practitioner; Visit Provider Internal Medicine Cardiovascular Disease
DX: I63.9 Cerebral infarction, unspecified (principal); I10 Essential (primary) hypertension; F17.210 Nicotine dependence, cigarettes, uncomplicated
CPT/HCPCS: 36415; 80048; 99205; 99215

== ENCOUNTER 2020-09-09 08:32 | Outpatient (CLI) | payer OTHER, SELFPAY | END 2020-09-09 08:52 | PROVIDERS: PCP Nurse Practitioner; Referring Provider Family Medicine; Visit Provider Internal Medicine Cardiovascular Disease | DX: I63.9 Cerebral infarction, unspecified (principal) | CPT/HCPCS: 93272 ==

== ENCOUNTER 2021-05-07 12:58 | Emergency (ER) | payer OTHER, SELFPAY ==
[2021-05-07] VITALS (89 sets, daily range): BP systolic 98–186; BP diastolic 57–115; PULSE 57–90; RESP 8–21; TEMP 36.2–36.9; O2SAT 94–100
--- NOTE | 2021-05-07 12:45 | RT.EKG_ITS ---
APPROVED REPORT Exam: Resting ECG Reason for Exam: syncope Patient Location: E HR:60 bpm ECG Measurements Heart Rate 60 AXIS MS 208 P 47 QRSd 93 QRS 44 QT 501 T -26 QTc 499 Conclusion Sinus rhythm. Borderline prolonged MS interval...MS >202 Nonspecific T abnormalities, diffuse leads,lateral t wave inversions as seen on previous 08/03/20
--- NOTE | 2021-05-07 13:15 | DI.RAD_ITS ---
Exam(s) XR CHEST 2V PA LATERAL EXAM: XR CHEST 2V PA LATERAL CLINICAL HISTORY: syncope. TECHNIQUE: 2D digital imaging was performed. COMPARISON: No exams were available for comparison FINDINGS: Mild cardiomegaly. Mediastinum not widened Lungs are clear. No infiltrates nor pleural effusions. IMPRESSION: No acute pulmonary findings. Mild cardiomegaly. No pulmonary edema. No pleural effusions. DATA REPOSITORY: RADIATION DOSE DELIVERED:
--- NOTE | 2021-05-07 13:22 | DI.CT_ITS ---
Exam(s) CT HEAD WO EXAM: CT HEAD WO CLINICAL HISTORY: syncope. TECHNIQUE: Imaging Protocol: Axial computed tomography images with coronal and sagittal reformatted images were created and reviewed COMPARISON: CT CT HEAD WO from 08/03/2020 FINDINGS: There are no skull fractures. There is mucosal thickening and fluid consistent with sinusitis in th e left maxillary sinus, similar to previous and there is a small defect in the medial wall the left m axillary sinus again noted which is probably from prior instrumentation. Minimal mucosal thickening seen in the opposite-right maxillary sinus. Sphenoid sinuses and ethmoidal air cells are clear. Fro ntal sinuses are not developed. Mastoid air cells clear. Small area of hypodensity in the posterior limb of the right internal capsule is unchanged and consi stent with lacunar infarct. Unchanged from previous. There is no evidence of intracranial hemorrhage, mass effect, or shift of midline structures. There are no extra-axial fluid collections. The ventricles are not enlarged or shifted and there is no blo od within the ventricular system nor within the basal cisterns. Symmetrical calcification in both basal ganglia again noted. IMPRESSION: No acute intracranial findings on this noninfused CT scan of the brain. Unchanged right-sided lacunar infarct internal capsules described above. Also unchanged small lacuna r infarct in the immediate right periventricular white matter. Evidence of previous left maxillary sinus surgery. Mucosal thickening fluid in left maxillary sinus is also unchanged from July 2020. RADIATION DOSE DELIVERED: 822.76mGy.cm Total DLP DATA REPOSITORY: All CT scans at this facility are submitted to the National Radiology Data Registry (NRDR) Dose Index Registry (DIR) with the [employer] ([employer]). RADIATION OPTIMIZATION: All CT scans at this facility use at least one of these dose optimization te chniques: automated exposure control; mA and/or kV adjustment per patient size (includes targeted exa ms where dose is matched to clinical indication); or iterative reconstruction.
[2021-05-07 13:30] LABS: Abs Immature Grans 0.01 10^3/uL (0.0-0.06); Absolute Basophil Count 0.05 10^3/uL (0.0-0.2); Absolute Eosinophil Count 0.24 10^3/uL (0.0-0.7); Absolute Lymphocyte Count 1.49 10^3/uL (1.2-3.4); Absolute Monocyte Count 0.48 10^3/uL (0.1-0.8); Absolute Neutrophil Count 2.63 10^3/uL (1.2-6.7); Eosinophils % 4.9; HGB 12.1 g/dL (13.5-17.5); Immature Grans % 0.2; Lymphocytes % 30.4; MCH 30.6 pg (27.0-33.0); MCHC 33.6 % (32.0-36.0); MCV 90.9 fL (80-95); MPV 10.4 fL (8.0-11.0); Monocytes % 9.8; Neutrophils % 53.7; Nucleated RBC 0 %; Platelet Count 157 10^3/uL (130-400); RBC 3.96 10^6/uL (4.36-5.78); RDW 12.7 % (11.8-14.1); RDW-SD 42.1 fL
[2021-05-07 13:46] LABS: ALT 17 U/L (16-63); AST 24 U/L (15-37); Albumin 3.4 g/dL (3.4-5.0); Alkaline Phosphatase 50 U/L (46-116); Anion Gap 12.7 mmol/L (3-11); BUN 27 mg/dL (7-18); Bilirubin, Total 0.4 mg/dL (0.2-1.0); CO2 20.3 mmol/L (21.0-32.0); CREATININE 1.5 mg/dL (0.70-1.30); Calcium 8.3 mg/dL (8.5-10.1); Chloride 103 mmol/L (98-107); Estimated GFR 48.07 (mL/min/1.73m2); Glucose 111 mg/dL (74-106); Sodium 136 mmol/L (136-145); Total Protein 6.5 g/dL (6.4-8.2)
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
--- NOTE | 2021-05-07 14:34 | DI.VRAD_ITS ---
PROCEDURE INFORMATION: Exam: CT Head Without Contrast Exam date and time: 05/07/2021 2:13 PM Age: 60 years old Clinical indication: Other: Syncope TECHNIQUE: Imaging protocol: Computed tomography of the head without contrast. Radiation optimization: All CT scans at this facility use at least one of these dose optimization techniques: automated exposure control; mA and/or kV adjustment per patient size (includes targeted exams where dose is matched to clinical indication); or iterative reconstruction. COMPARISON: CT HEAD WO 08/03/2020 10:54 AM FINDINGS: Brain: Ventricles, sulci are unchanged when compared with the patient's prior exam. There is no acute intracranial hemorrhage, mass or shift. There is remote lacune noted adjacent to the posterior limb of the right internal capsule also previously identified. There is no evidence of a new cortical or major vascular territory infarct. No new extra-axial collections are identified. Cerebral ventricles: No significant ventricular enlargement Paranasal sinuses: There is mucoperiosteal thickening, small amount of fluid noted within the left maxillary antrum also seen on the patient's prior exam Mastoid air cells: There is some mild patchy opacification of inferior mastoid air cells on the right. Vasculature: Intracranial vascular calcification is noted but there is no hyperdense thrombus Bones/joints: There is no new or acute bony abnormality Soft tissues: There is mild left pre maxillary edema seen at the edge of the field of view. No other significant subcutaneous abnormality is identified. IMPRESSION: No new or acute intracranial findings identified. Dictated and Authenticated by: Lisa Nelson MD. Ordering:KORINA Miller MD
--- NOTE | 2021-05-07 14:40 | DI.VRAD_ITS ---
PROCEDURE INFORMATION: Exam: XR Chest Exam date and time: 05/07/2021 1:23 PM Age: 60 years old Clinical indication: Other: Syncope TECHNIQUE: Imaging protocol: XR of the chest. Views: 2 views. COMPARISON: No relevant prior studies available. FINDINGS: Lungs: There is no significant airspace consolidation or overt CHF Pleural spaces: A large pleural effusion, or pneumothorax is not seen Heart/Mediastinum: Heart is top-normal in size. Mediastinum is unremarkable Bones/joints: There is no acute bony abnormality IMPRESSION: No acute findings by plain film exam Dictated and Authenticated by: Lisa Nelson MD. Ordering:KORINA Miller MD
[2021-05-07] MEDS: Aspirin 325 MG TAB PO (15:00)
[2021-05-07 15:27] LABS: Source Nasal/Nares
[2021-05-07] MEDS: Normal Saline 1,000 ML 150 ML IV (15:47)
[2021-05-07] MEDS: Normal Saline Flush 10 ML SYR IVP (15:48)
[2021-05-07 15:53] LABS: Prothrombin Time 10.1 sec (9.3-11.0)
[2021-05-07 16:05] LABS: NT-proBNP 707 pg/mL (<300)
[2021-05-07 16:09] LABS: PTT Activated 23.3 sec (21.0-27.5)
--- NOTE | 2021-05-07 16:15 | RT.EKG_ITS ---
APPROVED REPORT Exam: Resting ECG Reason for Exam: repeat EKG Patient Location: E HR:65 bpm ECG Measurements Heart Rate 65 AXIS CO 193 P 53 QRSd 95 QRS 12 QT 455 T 89 QTc 472 Conclusion Sinus rhythm. Probable LVH with secondary repol abnrm..No significant changes vs comparison
[2021-05-07 16:47] LABS: Troponin I 0.34 ng/mL (<0.06)
[2021-05-07 17:55] LABS: Bilirubin Negative (Negative); Blood Negative (Negative); Clarity Clear (Clear); Glucose Negative (Negative); Ketones Negative (Negative); Leukocyte Esterase Negative (Negative); Nitrite Negative (Negative); Urobilinogen 0.2 EU/dL (Up TO 0.2)
[2021-05-07 18:44] LABS: COVID-19 PCR Negative (Negative)
== END 2021-05-07 18:43 | disposition short-term general hospital (02) ==
PROVIDERS: Emergency Provider Emergency Medicine; PCP Nurse Practitioner Family
DX: I35.0 Nonrheumatic aortic (valve) stenosis (principal); I21.4 Non-ST elevation (NSTEMI) myocardial infarction; Z87.891 Personal history of nicotine dependence
CPT/HCPCS: 36415; 80053; 87635; 93005; 96361; 96365; 96376; 99285; 70450; 71046; 81003; 83735; 83880; 84484; 85025; 85610; 85730; 93010; 99284

== ENCOUNTER → 2021-08-08 10:01 | Outpatient (BNVA) | payer OTHER, SELFPAY | PROVIDERS: PCP Nurse Practitioner Family; Referring Provider Nurse Practitioner Family; Visit Provider Internal Medicine Cardiovascular Disease | DX: I25.810 Atherosclerosis of coronary artery bypass graft(s) without angina pectoris (principal); Z95.2 Presence of prosthetic heart valve; Z98.890 Other specified postprocedural states | CPT/HCPCS: 99214; 99213 ==

== ENCOUNTER 2021-09-13 03:44 | Outpatient (CLI) | payer MEDICARE, SELFPAY ==
[2021-09-13 14:45] LABS: Hemoglobin A1C 5.6 % (<5.7)
[2021-09-13 15:03] LABS: Calculated LDL 67 mg/dL (<100); Cholesterol 126 mg/dL (<200); HDL Cholesterol 48 mg/dL (40-60); Triglyceride 57 mg/dL (<150)
== END 2021-09-13 03:45 | disposition home or self-care (01) ==
LOC: LBO 03:44
PROVIDERS: PCP Nurse Practitioner Family; Visit Provider Nurse Practitioner Family
DX: I10 Essential (primary) hypertension (principal); I25.810 Atherosclerosis of coronary artery bypass graft(s) without angina pectoris; K21.9 Gastro-esophageal reflux disease without esophagitis; Z13.1 Encounter for screening for diabetes mellitus; Z00.00 Encounter for general adult medical examination without abnormal findings
CPT/HCPCS: 36415; 80061; 83036

== ENCOUNTER → 2022-02-06 09:52 | Outpatient (BNVA) | payer MEDICARE, SELFPAY | PROVIDERS: PCP Nurse Practitioner Family; Visit Provider Internal Medicine Cardiovascular Disease | DX: I25.810 Atherosclerosis of coronary artery bypass graft(s) without angina pectoris (principal); I10 Essential (primary) hypertension; Z95.2 Presence of prosthetic heart valve | CPT/HCPCS: 99213 ==

== ENCOUNTER → 2022-08-10 09:24 | Outpatient (BNVA) | payer MEDICARE, SELFPAY | PROVIDERS: PCP Nurse Practitioner Family; Referring Provider Nurse Practitioner Family; Visit Provider Internal Medicine Cardiovascular Disease | DX: I25.810 Atherosclerosis of coronary artery bypass graft(s) without angina pectoris (principal); Z95.2 Presence of prosthetic heart valve | CPT/HCPCS: 99214 ==

== ENCOUNTER 2022-09-20 03:26 | Outpatient (CLI) | payer MEDICARE, SELFPAY ==
[2022-09-20 09:54] LABS: CREATININE 1.2 mg/dL (0.70-1.30); Estimated GFR 69.66 (mL/min/1.73m2); Potassium 4.5 mmol/L (3.5-5.1)
== END 2022-09-20 03:27 | disposition home or self-care (01) ==
PROVIDERS: PCP Nurse Practitioner Family; Visit Provider Nurse Practitioner Family
DX: I10 Essential (primary) hypertension (principal)
CPT/HCPCS: 36415; 82565; 84132

== ENCOUNTER 2023-08-10 07:53 | Outpatient (CLI) | payer MEDICARE, SELFPAY ==
--- NOTE | 2023-08-10 07:45 | RT.EKG_ITS ---
APPROVED REPORT Exam: Resting ECG Reason for Exam: CAD Patient Location: O HR:50 bpm ECG Measurements Heart Rate 50 AXIS MA 187 P 62 QRSd 95 QRS 18 QT 447 T 41 QTc 408 Conclusion Sinus rhythm...normal P axis, V-rate 50- 99 Probable left atrial enlargement...P >50mS, <-0.10mV V1 Otherwise normal ECG
== END 2023-08-10 07:54 | disposition home or self-care (01) ==
LOC: DI.CARD 07:54
PROVIDERS: PCP Nurse Practitioner Family; Visit Provider Internal Medicine Cardiovascular Disease
DX: I25.810 Atherosclerosis of coronary artery bypass graft(s) without angina pectoris
CPT/HCPCS: 93010

== ENCOUNTER → 2023-08-10 10:49 | Outpatient (BNVA) | payer MEDICARE, SELFPAY | PROVIDERS: PCP Nurse Practitioner Family; Visit Provider Internal Medicine Cardiovascular Disease | DX: I10 Essential (primary) hypertension (principal); I25.810 Atherosclerosis of coronary artery bypass graft(s) without angina pectoris; Z95.2 Presence of prosthetic heart valve | CPT/HCPCS: 93005; 99213 ==

== ENCOUNTER 2023-09-21 13:57 | Outpatient (CLI) | payer MEDICARE, SELFPAY ==
[2023-09-21 14:06] LABS: CREATININE 1.4 mg/dL (0.70-1.30); Calculated LDL 116 mg/dL (<100); Cholesterol 181 mg/dL (<200); Estimated GFR 57.54 (mL/min/1.73m2); HDL Cholesterol 47 mg/dL (40-60); Potassium 4.1 mmol/L (3.5-5.1); Triglyceride 93 mg/dL (<150)
== END 2023-09-21 13:58 | disposition home or self-care (01) ==
LOC: LBO 13:58
PROVIDERS: PCP Nurse Practitioner Family; Visit Provider Nurse Practitioner Family
DX: I10 Essential (primary) hypertension (principal); E78.5 Hyperlipidemia, unspecified
CPT/HCPCS: 36415; 80061; 82565; 84132

== ENCOUNTER 2023-11-27 14:00 | Outpatient (CLI) | payer MEDICARE, SELFPAY ==
[2023-11-27 11:51] LABS: TSH (W/Ref FT4) 0.71 uIU/mL (0.36-3.74)
--- OUTSIDE RECORDS SUMMARY | 2023-11-27 14:06 | XMS_ITS | CCD ---
Author Name Unknown Address [address], [place] [id number] Organization Unknown Address [address], [place] [id number] Care Team Providers Care Teacher Of [employer] Name Role Phone AMBROSEVADIM Attending Physician [phone] Vital Signs Unknown or Not Available. Allergies Unknown or Not Available. Procedures Procedure Code Procedure Type Date ENDOSC POLYPECT OF LG INTESTINE 4542 ICD-9 CM, Volume 3 07/29/2015 EGD WITH CLOSED BIOPSY 4516 ICD-9 CM, Volume 3 07/29/2015 History of Immunizations Unknown or Not Available. Problems Unknown or Not Available. Results Unknown or Not Available. Active Medications Unknown or Not Available. Medications Administered During Visit Unknown or Not Available. Encounters Encounter Diagnosis Diagnosis Code Start Date UNSPECIFIED CONSTIPATION 86302 [id number] Social History Smoking Status Code Start Date End Date Unknown if ever smoked [id number] Patient Decision Aids Unknown or Not Available. Discharge Instructions You were admitted to [facility] on 07/29/2015 08:02 with a principal diagnosis of Constipation, unspecified You had the following procedures done:ENDOSC POLYPECT OF LG INTESTINEEGD WITH CLOSED BIOPSY You were discharged from [facility] on 07/29/2015 09:50 Should you have any questions prior to discharge, please contact a member of your healthcare team. If you have left the hospital and have any questions, please contact your primary care physician. Chief Complaint and Reason For Visit Chief Complaint Date of Onset Constipation Function Status Unknown or Not Available. Plan of Care Unknown or Not Available. Referral/Transition of Care Unknown or Not Available.
== END 2023-11-27 14:01 | disposition home or self-care (01) ==
PROVIDERS: PCP Nurse Practitioner Family; Visit Provider Nurse Practitioner Family
DX: E04.1 Nontoxic single thyroid nodule (principal)
CPT/HCPCS: 36415; 84443

== ENCOUNTER → 2024-08-08 10:47 | Outpatient (BNVA) | payer MEDICARE, SELFPAY | PROVIDERS: PCP Nurse Practitioner Family; Visit Provider Internal Medicine Cardiovascular Disease | DX: I25.810 Atherosclerosis of coronary artery bypass graft(s) without angina pectoris (principal); Z95.2 Presence of prosthetic heart valve | CPT/HCPCS: 99213 ==

== ENCOUNTER 2024-10-01 11:11 | Outpatient (CLI) | payer MEDICARE, SELFPAY ==
[2024-10-01 12:38] LABS: Hemoglobin A1C 5.6 % (<5.7)
[2024-10-01 12:56] LABS: Anion Gap 6.6 mmol/L (3-11); BUN 20 mg/dL (7-18); CO2 28.4 mmol/L (21.0-32.0); CREATININE 1.2 mg/dL (0.70-1.30); Calcium 9.4 mg/dL (8.5-10.1); Calculated LDL 167 mg/dL (<100); Chloride 102 mmol/L (98-107); Cholesterol 248 mg/dL (<200); Glucose 82 mg/dL (74-106); HDL Cholesterol 54 mg/dL (40-60); Potassium 4.9 mmol/L (3.5-5.1); Sodium 137 mmol/L (136-145); Triglyceride 137 mg/dL (<150)
[2024-10-02 08:34] LABS: PSA, Screening 1.2 ng/mL (<=4.5)
[2024-10-02 10:11] LABS: Hepatitis C Ab w Rflx HCV PCR Negative (Negative)
== END 2024-10-01 11:12 | disposition home or self-care (01) ==
LOC: LOS 11:11
PROVIDERS: PCP Nurse Practitioner Family; Referring Provider Nurse Practitioner Family; Visit Provider Nurse Practitioner Family
DX: E11.9 Type 2 diabetes mellitus without complications (principal); I25.810 Atherosclerosis of coronary artery bypass graft(s) without angina pectoris; Z13.220 Encounter for screening for lipoid disorders; Z12.5 Encounter for screening for malignant neoplasm of prostate; Z13.1 Encounter for screening for diabetes mellitus
CPT/HCPCS: 36415; 80048; 80061; 84153; 86803; 83036

== ENCOUNTER 2024-10-15 00:52 | Outpatient (CLI) | payer MEDICARE, SELFPAY ==
--- NOTE | 2024-10-15 08:00 | DI.US_ITS ---
Exam(s) US THYROID EXAM: US THYROID CLINICAL HISTORY: F/U thyroid nodule, E04.1. TECHNIQUE: Ultrasound thyroid performed using standard protocol. COMPARISON: US HEART ULTRASOUND GRP from 09/21/[address] CHEST LUNG CANCER SCREEN from 10/15/2024 FINDINGS: ISTHMUS: 3.6 mm RIGHT LOBE: Size: 6.4 x 2.1 x 2.6 cm Echogenicity: Normal. Vascularity: Normal. Nodules: No suspicious nodules are seen in the right lobe. Small cysts are present. LEFT LOBE: Size: 7.2 x 2.2 x 2.9 cm Echogenicity: Normal. Vascularity: Normal. Nodules: There is a 2.3 x 1.4 x 2.1 cm spongiform nodule in the lower pole of the left lobe. This is a TI rads level 1. No follow-up is recommended. There is a 0.5 x 0.5 x 0.5 cm mixed hypoechoic nod ule in the upper pole. There are 2 macro calcs associated with it. The findings are consistent with a TI rads 4 level nodule. Due to its size, no follow-up is recommended. OTHER FINDINGS: None. IMPRESSION: Thyroid nodules. No suspicious nodules are seen to warrant biopsy or follow-up. DATA REPOSITORY:
--- NOTE | 2024-10-15 08:00 | DI.CTLCSR_ITS ---
Exam(s) CT CHEST LUNG CANCER SCREEN EXAM: CT CHEST LUNG CANCER SCREEN CLINICAL HISTORY: Screening for lung cancer, former smoker, Z87.891 TECHNIQUE: Imaging Protocol: Axial computed tomography images with coronal and sagittal reformatted images were created and reviewed. Lung Computer Aided Detection (CAD) was utilized. COMPARISON: CR,XR XR CHEST 2V PA LATERAL from 05/07/2021 FINDINGS: Tracheobronchial tree: Patent where visualized. No bronchiectasis. Pulmonary parenchyma: No consolidation or dominant measurable mass. There is scarring seen in the lef t lower lobe and left lingula. Lung Nodules: There is a 3 mm nodule in the right upper lobe. No other pulmonary nodules are seen. Mediastinum and Danielle: No dominant adenopathy or fluid collection. The esophagus is unremarkable. Thyroid gland: Unremarkable. Lymph nodes: Unremarkable. Pleura: No effusion or pneumothorax. Heart: Cardiomegaly. Coronary artery calcifications are present. There is an aortic valve replaceme nt. There is calcification of the mitral annulus. No pericardial effusion. Aorta: Thoracic aorta non-dilated.Atherosclerotic calcification is present. Upper abdomen: Unremarkable. Soft Tissues: Unremarkable. Bones: Within normal limits. Sternal wires are in place. IMPRESSION: 3 mm right upper lobe pulmonary nodule. Lung RADS Cat 2 - Benign Appearance / Behavior: Nodules with a very low likelihood of becoming a clin ically active cancer due to size or lack of growth Lung-RADS 1.0 CATEGORIES: Category 0 - Prior chest CT exam(s) being located for comparison. Category 1 - Annual screening in 12 months. No nodules or definitely benign nodules. Category 2 - Annual screening in 12 months. Benign appearance. Nodules with low likelihood of becomin g active cancer. Category 3 - 6-month follow-up. Probably benign. Short-term follow-up suggested. Nodules with low lik elihood of becoming active cancer. Category 4A - 3-month follow-up and CT/PET if >8 mm in size. Suspicious finding. Findings which requi re additional testing. Category 4B - Findings which require additional testing and tissue sampling. Suspicious finding. Category 4X - Category 3 or 4 nodules with additional features or imaging findings that increases the suspicion of malignancy. Modifier S- Potentially clinically significant finding. (Non lung cancer) RADIATION DOSE DELIVERED: 36.68mGy.cm Total DLP 36.68mGy.cmTotal DLP DATA REPOSITORY: All CT scans at this facility are submitted to the National Radiology Data Registry (NRDR) Dose Index Registry (DIR) with the [employer] (A[employer]). RADIATION OPTIMIZATION: All CT scans at this facility use at least one of these dose optimization te chniques: automated exposure control; mA and/or kV adjustment per patient size (includes targeted exa ms where dose is matched to clinical indication); or iterative reconstruction.
== END 2024-10-15 01:12 ==
LOC: DI 00:53
PROVIDERS: PCP Nurse Practitioner Family; Visit Provider Nurse Practitioner Family
DX: Z87.891 Personal history of nicotine dependence (principal); E04.1 Nontoxic single thyroid nodule; Z12.2 Encounter for screening for malignant neoplasm of respiratory organs
CPT/HCPCS: 71271; 76536

== ENCOUNTER 2025-08-07 10:48 | Outpatient (CLI) | payer MEDICARE, SELFPAY ==
--- NOTE | 2025-08-07 10:45 | RT.EKG_ITS ---
APPROVED REPORT Exam: Resting ECG Reason for Exam: Follow up needed Patient Location: O HR:49 bpm ECG Measurements Heart Rate 49 AXIS AK 201 P 59 QRSd 108 QRS 20 QT 433 T 78 QTc 391 Conclusion Sinus bradycardia...rate< 50 Probable left atrial enlargement...P >50mS, <-0.10mV V1 Baseline wander in lead(s) V5
== END 2025-08-07 10:49 | disposition home or self-care (01) ==
LOC: DI.CARD 10:51
PROVIDERS: PCP Nurse Practitioner Family; Referring Provider Nurse Practitioner Family; Visit Provider Internal Medicine Cardiovascular Disease
DX: I35.0 Nonrheumatic aortic (valve) stenosis (principal); I35.1 Nonrheumatic aortic (valve) insufficiency; I10 Essential (primary) hypertension; I51.7 Cardiomegaly
CPT/HCPCS: 93010

== ENCOUNTER → 2025-08-07 10:48 | Outpatient (BNVA) | payer MEDICARE, SELFPAY | PROVIDERS: PCP Nurse Practitioner Family; Referring Provider Nurse Practitioner Family; Visit Provider Internal Medicine Cardiovascular Disease | DX: I25.810 Atherosclerosis of coronary artery bypass graft(s) without angina pectoris (principal); Z95.2 Presence of prosthetic heart valve; R10.9 Unspecified abdominal pain | CPT/HCPCS: 99213; 93005 ==